=== PATIENT | female | born 1945 | race Caucasian/White ===

== ENCOUNTER 2016-06-24 15:36 | Inpatient (IN) | payer MEDICARE, OTHER ==
[~2016-06-24] VITALS: Ht 152.4 cm; Wt 85.2 kg
[~2016-06-24 15:36] MED LIST: ASPEC81 PO; ATEN-173 PO; BUPR-266 PO; CETI10TA10 PO; GLUC1500 PO; HYDR-5688 PO; LEVO125T72 PO; MELA1CAP9 PO; METR1GEL3 TOP; MULT-839 PO; MULT1CAP6 PO; NIZA300C PO; OXYC-292 PO; [UNRECOGNIZED DRUG - REMARK] PO
[2016-06-24] MEDS ORDERED: SODIUM CHLORIDE 0.9% 1000ML 500 ML IV ONE (16:00)
[2016-06-24] MEDS ORDERED: ACETAMINOPHEN 325 MG TAB PO ONE (16:00)
[2016-06-24] MEDS ORDERED: CEFTRIAXONE SOD INJ 2,000 MG in DEXTROSE 5% 50ML 50 ML IV STA (16:00)
--- NOTE | 2016-06-24 16:39 | EMERGENCY ROOM VISIT NOTE ---
History Report prepared by Jesus: Disha Mccauley Under the Supervision of: Dr. Arie Hernandez M.D. First contact with patient: 15:52 Chief Complaint: WOUND INFECTION Stated Complaint: ABCESS ON RT FLANK History of Present Illness The patient is a 71 year old female who presents to the Emergency Room with complaints of worsening right flank pain that began 3 days ago. The patient had a CT scan that day because her PCP was suspicious of a kidney stone, as she has had kidney stones in the past. A CT scan revealed an abdominal abscess with a possible fistulous tract form a local bowel loop (see diagnostic interpretation for more details). Recently, the patient has been feeling more short of breath with a decreased appetite. She also complains of chills today. She has not noticed any bowel issues. Denies fever, vomiting, diarrhea, urinary symptoms, or other complaints. Past surgical history includes gastric bypass about 10 years ago and bowel perforation repair performed by Dr. Terrazas 2 years ago. Source of History: patient Onset: 3 days ago Position: other (right flank) Timing: worsening Associated Symptoms: + SOB, + chills, No diarrhea, No fevers, No urinary symptoms, No vomiting Note: Other symptoms: decreased appetite Review of Systems See HPI for pertinent positives & negatives. A total of 10 systems reviewed and were otherwise negative. Past Medical & Surgical Medical Problems: (1) Anemia (2) Depression (3) GERD (gastroesophageal reflux disease) (4) HTN (hypertension) (5) Irregular heart beat (6) Obesity (7) Osteoarthritis (8) Rosacea (9) Spinal stenosis Surgical Problems: (1) H/O gastric bypass (2) H/O lithotripsy (3) H/O total knee replacement (4) H/O: (5) Hx of cholecystectomy (6) Post-operative state Family History No pertinent family history stated. Social History Smoking Status: Former Smoker Marital Status: Housing Status: lives with family Occupation Status: retired Current/Historical Medications Scheduled Atenolol (Tenormin), 25 MG PO BID Bupropion (Wellbutrin Sr), 1 TAB PO BID Cetirizine Hcl (Zyrtec), 10 MG PO QAM Ckdinsvsagz-Rybbiuuehbz-Uaz C- (Glucosamine Chondroitin 1), 1 CAP PO QAM Levothyroxine Sodium (Synthroid), 125 MCG PO QAM Multiple Vitamins W/ Minerals (Multi For Her), 1 CAP PO QAM Multiple Vitamins W/ Minerals (Vision Formula/Lutein), 1 TAB PO QAM Nizatidine (Nizatidine), 1 CAP PO BID Tamsulosin HCl (Tamsulosin HCl), 1 CAP PO DAILY Scheduled PRN Hydrocodone/Acetaminophen 5MG/325MG ([place] 5MG/325MG), 1-2 TAB PO Q4H PRN for Pain Melatonin (Melatonin), 10 MG PO HS PRN for Sleep Allergies Coded Allergies: Dust (Verified Allergy, Unknown, HAY FEVER, 06/24/16) Latex1 -Allergic Contact Dermititis (Verified Allergy, Unknown, contact dermatitis, 06/24/16) POLLEN (Verified Allergy, Unknown, HAY FEVER, 06/24/16) Penicillins (Verified Allergy, Unknown, RASH, 06/24/16) Shellfish (Verified Allergy, Unknown, 'tested positive during allergy testing', 06/24/16) Tomato (Verified Allergy, Unknown, tested positive, no rxn, 06/24/16) Eggs or Egg-derived Products (Verified Adverse Reaction, Unknown, 'tested positive during allergy testing', 06/24/16) Sulfa Antibiotics (Verified Adverse Reaction, Unknown, flu symptoms, ) Uncoded Allergies: SEAFOOD (Allergy, Unknown, TESTED POSTIVE during allergy testing, 01/03/15) SMOKE (Allergy, Unknown, CONGESTION, 01/03/15) Physical Exam Vital Signs Date Time Temp Pulse Resp B/P Pulse Ox O2 Delivery O2 Flow Rate FiO2 06/24/16 17:04 96 19 96 06/24/16 17:01 96 Room Air 06/24/16 15:44 37.7 86 18 134/84 96 Room Air Physical Exam GENERAL: Patient is in no acute distress. HEENT: No acute trauma, normocephalic atraumatic, mucous membranes moist, no nasal congestion, no scleral icterus. NECK: No stridor, no adenopathy, no meningismus, trachea is midline. LUNGS: Clear to auscultation bilaterally, no wheeze, no rhonchi, breath sounds equal. HEART: Without murmurs gallops or rubs, regular rate and rhythm. ABDOMEN: There is a firm tender 10-12 cm lesion along the right lateral abdominal wall consistent with a possible abscess. There is no drainage. There is surrounding warmth and erythema. There are multiple old healed surgical abdominal scars. EXTREMITIES: No cyanosis or edema, full range of motion of all the joints without pain or difficulty, no signs for acute trauma. NEUROLOGIC: Oriented x 3, no acute motor or sensory deficits, no focal weakness. SKIN: No rash, no jaundice, no diaphoresis. Medical Decision & Procedures ER Provider Diagnostic Interpretation: CT Abdomen & Pelvis w/o contrast from [place] - 06/21/2016 Indication: Abdominal pain, renal calculi. Impression: Indolent abscess measuring approximately 9x4x5 cm along the right lateral abdominal wall involving the internal oblique, external oblique, and the transverse abdominis with local but walled off extension through the parietal peritoneum at the level of the anterior ninth and 10th rib. There is an adherent loop of bowel adjacent to the collection. This bowel loop may contain a fistulous tract to this collection. The anatomy is distorted by prior gastric bypass procedure. CHEST ONE VIEW PORTABLE CLINICAL HISTORY: Sepsis dyspnea COMPARISON STUDY: 11/30/2013 FINDINGS: The bones soft tissues and hemidiaphragms are normal. The cardiomediastinal silhouette is normal. The lungs are clear. The pulmonary vasculature is normal. IMPRESSION: Negative chest. Electronically signed by: Ar Last M.D. 06/24/2016 4:34 PM Dictated Date/Time: 06/24/2016 4:34 PM Laboratory Results 06/24/16 17:16 Red Blood Count 3.65, Mean Corpuscular Volume 82.5, Mean Corpuscular Hemoglobin 25.5, Mean Corpuscular Hemoglobin Concent 30.9, Mean Platelet Volume 9.5, Neutrophils (%) (Auto) 82.4, Lymphocytes (%) (Auto) 5.2, Monocytes (%) (Auto) 11.9, Eosinophils (%) (Auto) 0.1, Basophils (%) (Auto) 0.1, Neutrophils # (Auto ) 14.86, Lymphocytes # (Auto) 0.94, Monocytes # (Auto) 2.14, Eosinophils # (Auto ) 0.02, Basophils # (Auto) 0.02 06/24/16 17:16 Test 06/24/16 17:16 06/24/16 17:27 White Blood Count 18.03 K/uL (4.8-10.8) Red Blood Count 3.65 M/uL (4.2-5.4) Hemoglobin 9.3 g/dL (12.0-16.0) Hematocrit 30.1 % (37-47) Mean Corpuscular Volume 82.5 fL (80-100) Mean Corpuscular Hemoglobin 25.5 pg (25-34) Mean Corpuscular Hemoglobin Concent 30.9 g/dl (32-36) Platelet Count 467 K/uL (130-400) Mean Platelet Volume 9.5 fL (7.4-10.4) Neutrophils (%) (Auto) 82.4 % Lymphocytes (%) (Auto) 5.2 % Monocytes (%) (Auto) 11.9 % Eosinophils (%) (Auto) 0.1 % Basophils (%) (Auto) 0.1 % Neutrophils # (Auto) 14.86 K/uL (1.4-6.5) Lymphocytes # (Auto) 0.94 K/uL (1.2-3.4) Monocytes # (Auto) 2.14 K/uL (0.11-0.59) Eosinophils # (Auto) 0.02 K/uL (0-0.5) Basophils # (Auto) 0.02 K/uL (0-0.2) RDW Standard Deviation 51.2 fL (36.4-46.3) RDW Coefficient of Variation 16.8 % (11.5-14.5) Immature Granulocyte % (Auto) 0.3 % Immature Granulocyte # (Auto) 0.05 K/uL (0.00-0.02) Prothrombin Time 12.0 SECONDS (9.0-12.0) Prothromb Time International Ratio 1.1 (0.9-1.1) Activated Partial Thromboplast Time 32.3 SECONDS (21.0-31.0) Partial Thromboplastin Ratio 1.2 Anion Gap 9.0 mmol/L (3-11) Est Creatinine Clear Calc Drug Dose 69.9 ml/min Estimated GFR () 98.3 Estimated GFR (Non- 84.9 BUN/Creatinine Ratio 13.1 (10-20) Calcium Level 9.7 mg/dl (8.5-10.1) Total Bilirubin 0.4 mg/dl (0.2-1) Aspartate Amino Transf (AST/SGOT) 19 U/L (15-37) Alanine Aminotransferase (ALT/SGPT) 19 U/L (12-78) Alkaline Phosphatase 145 U/L (45-117) Total Protein 7.5 gm/dl (6.4-8.2) Albumin 2.5 gm/dl (3.4-5.0) Globulin 5.0 gm/dl (2.5-4.0) Albumin/Globulin Ratio 0.5 (0.9-2) Bedside Lactic Acid Venous 1.10 mmol/L (0.90-1.70) Laboratory results reviewed by me. ECG Indication: other (pre-op) Rate (beats per minute): 92 Rhythm: normal sinus Findings: no acute ischemic change, no ectopy ED Course 1552: The patient was evaluated in room A3. A complete history and physical exam was performed. 1600: Ordered Ceftriaxone Sodium 2000 mg/Dextrose 70 ml @ 100 mls/hr IV, Tylenol Tab 650 mg PO, NSS 500 ml @ 999 mls/hr IV. 1605: I discussed the case with the surgical PA. The surgical team will evaluate the patient. 1705: I spoke with Dr. Fragoso - General Surgery. The patient will be going to the OR. 1706: Ordered Flagyl/Nss 500 mg IV, CIpro/D5w 400 mg IV. Medical Decision Differential includes but is not limited to fistula, bowel perforation, abscess , sepsis, bacteremia, dehydration, electrolyte imbalance. There is a significant leukocytosis at 18,000, this is consistent with infection. The patient is anemic but she runs a low hemoglobin. No significant electrolyte abnormality, kidney failure or hepatitis. There was no coagulopathy. Chest film showed no pneumonia or CHF. EKG showed a sinus rhythm , no acute ischemia. I was able to review the CT report from the outside hospital. The patient has an extensive abscess to the right abdominal wall with concerns for possible fistula. The patient was given IV ceftriaxone, IV Cipro and IV Flagyl. She received IV saline and oral Tylenol. I talked to the patient and case management. I discussed the case with the on- call surgeon. The surgeon did see the patient here in the emergency room and the patient is being taken to the operating room for surgical intervention. Consults Time Called: 1602 Consulting Physician: General Surgery PA Returned Call: 1605 I discussed the case with the surgical PA. The surgical team will evaluate the patient. Additional Consults: Time Called: -- Consulted Physician: Dr. Fragoso - General Surgery Returned Call: 1700 Additional Comments: I spoke with him. The patient will be going to the OR. Impression Primary Impression: Abdominal wall abscess Additional Impression: Fever Scribe Attestation The scribe's documentation has been prepared under my direction and personally reviewed by me in its entirety. I confirm that the note above accurately reflects all work, treatment, procedures, and medical decision making performed by me. Departure Information Dispostion Being Evaluated By Surgeon Referrals Danyell Austin M.D. (PCP) Patient Instructions My [facility] Problem Qualifiers
[2016-06-24] MEDS ORDERED: CIPROFLOXACIN 400MG / 200ML D5W IV STA ×2 (16:56→17:06)
[2016-06-24] MEDS ORDERED: METRONIDAZOLE 500MG / 100ML NSS IV STA ×2 (16:56→17:06)
[2016-06-24] MEDS ORDERED: FLM4 PO (17:00)
[2016-06-24] MEDS ORDERED: BUPR100T8 PO (17:00)
[2016-06-24] MEDS ORDERED: NIZA300C3 PO (17:00)
[2016-06-24] MEDS ORDERED: FENTANYL CITRATE INJ 50 MCG/1 ML 2 ML VIAL ONE (17:02)
[2016-06-24] MEDS ORDERED: MIDAZOLAM HCL 1 MG/ML 2ML VIAL ONE (17:02)
[2016-06-24] MEDS ORDERED: MULT-839 PO (17:05)
--- NOTE | 2016-06-24 17:05 | History and Physical: Surg Cnt ---
History & Physical Date Jun 24, 2016. (Iris Turk ., GRAYC) Chief Complaint Right flank pain, abdominal abscess (Iris Turk PA-C) History of Present Illness The patient is a 71 year old female who presented to emergency department today with complaint of right abdominal flank pain that began Friday. States she though it was a kidney stone and she had a CT scan ordered at [facility] while she was having a mammogram which showed abdominal abscess with possible fistula formation with a loop of small bowel. states she started having increasing pain on the right side and some chills on Friday with associated low appetite. Denies of any fever, nausea, vomiting, changes in bowel habits, diarrhea, constipation, or blood in stools. She does not take any blood thinning agents. She does have significant history of abdominal surgeries including gastric bypass in 2007, duodenal/gastric ulcer perforation with repair and need for wound vac in 2013, and history of open cholecystectomy many years ago. (Iris Turk, GRAYC) Past Medical/Surgical History Medical Problems: (1) Anemia (2) Depression (3) GERD (gastroesophageal reflux disease) (4) HTN (hypertension) (5) Irregular heart beat (6) Obesity (7) Osteoarthritis (8) Rosacea (9) Spinal stenosis Surgical Problems: (1) H/O gastric bypass (2) H/O lithotripsy (3) H/O total knee replacement (4) H/O: (5) Hx of cholecystectomy (6) Post-operative state (Iris Turk PA-C) Allergies Coded Allergies: Dust (Verified Allergy, Unknown, HAY FEVER, 06/24/16) Latex1 -Allergic Contact Dermititis (Verified Allergy, Unknown, contact dermatitis, 06/24/16) POLLEN (Verified Allergy, Unknown, HAY FEVER, 06/24/16) Penicillins (Verified Allergy, Unknown, RASH, 06/24/16) Shellfish (Verified Allergy, Unknown, 'tested positive during allergy testing', 06/24/16) Tomato (Verified Allergy, Unknown, tested positive, no rxn, 06/24/16) Eggs or Egg-derived Products (Verified Adverse Reaction, Unknown, 'tested positive during allergy testing', 06/24/16) Sulfa Antibiotics (Verified Adverse Reaction, Unknown, flu symptoms, ) Uncoded Allergies: SEAFOOD (Allergy, Unknown, TESTED POSTIVE during allergy testing, 01/03/15) SMOKE (Allergy, Unknown, CONGESTION, 01/03/15) Home Medications Scheduled Atenolol (Tenormin), 25 MG PO BID Bupropion (Wellbutrin Sr), 1 TAB PO BID Cetirizine Hcl (Zyrtec), 10 MG PO QAM Cqeuspniijx-Otvaoiitghd-Psn C- (Glucosamine Chondroitin 1), 1 CAP PO QAM Levothyroxine Sodium (Synthroid), 125 MCG PO QAM Multiple Vitamins W/ Minerals (Multi For Her), 1 CAP PO QAM Multiple Vitamins W/ Minerals (Vision Formula/Lutein), 1 TAB PO QAM Nizatidine (Nizatidine), 1 CAP PO BID Tamsulosin HCl (Tamsulosin HCl), 1 CAP PO DAILY Scheduled PRN Hydrocodone/Acetaminophen 5MG/325MG ([place] 5MG/325MG), 1-2 TAB PO Q4H PRN for Pain Melatonin (Melatonin), 10 MG PO HS PRN for Sleep Physical Examination Skin: warm/dry, + pertinent finding (there is some erythema of the right flank region with associated induration and palpable lump, tender to palpation) Eyes: normal inspection Head: normocephalic, atraumatic Neck: trachea midline Respiratory/Chest: lungs clear, normal breath sounds, no respiratory distress Cardiovascular: regular rate, rhythm Abdomen / GI: normal bowel sounds, + pertinent finding (Tenderness of the right flank with associated erythema and slight induration, warm to touch) Extremities: normal inspection Neurologic/Psych: alert, oriented x 3 (Iris Turk ., PA-C) Diagnosis Diagnostic Interpretation: CT Abdomen & Pelvis w/o contrast from [place] - 06/21/2016 Indication: Abdominal pain, renal calculi. Impression: Indolent abscess measuring approximately 9x4x5 cm along the right lateral abdominal wall involving the internal oblique, external oblique, and the transverse abdominis with local but walled off extension through the parietal peritoneum at the level of the anterior ninth and 10th rib. There is an adherent loop of bowel adjacent to the collection. This bowel loop may contain a fistulous tract to this collection. The anatomy is distorted by prior gastric bypass procedure. Assessment: Abdominal wall abscess with possible fistula to adjacent loop of bowel. Cellulitis (Iris Turk ., PA-C) ASA Classification: ASA Class III (Cecy Fragoso MD) Plan of Treatment Plan: Plan for incision and drainage of right abdominal wall abscess, possible exploratory laparotomy, possible bowel resection Will start IV cipro/flagyl IV fluids Awaiting labs for cbc, Cmp, pt/inr EKG pre-op CXR pre-op Dr. Fragoso has seen and examined patient, developed assessment and plan. (Iris Turk ., PA-C) D/W benefits, risks and alternatives of the procedure( I/D right abdominal wall abscess possible exploratory laparotomy, bowel resection), the risks- infection, bleeding, sepsis, injury bowel, DVT, TN, stroke, , pt and her understood, they agree with the plan, I answered all questions, I reviewed CT scan, IV fluid, antibiotic, labs, EKG, D/W ER attending, (Cecy Fragoso MD)
[2016-06-24] MEDS ORDERED: LIDOCAINE HCL 1% 20 ML VIAL ONE (17:37)
[2016-06-24] MEDS ORDERED: BUPIVACAINE 0.5 % 5 MG/1 ML MPF 30ML VIAL ONE (17:38)
[2016-06-24] MEDS ORDERED: BACITRACIN OINT 15 GM TUBE ONE (17:38)
[2016-06-24 17:42] LABS: BASO % 0.1 %; BASO ABS # 0.02 K/uL (0-0.2); COMPLETE YES; EOS % 0.1 %; HEMATOCRIT 30.1 % (37-47); IG% 0.3 %; LYMPH % 5.2 %; LYMPH ABS # 0.94 K/uL (1.2-3.4); MEAN CELL VOLUME 82.5 fL (80-100); MEAN CORPUSCULAR HEMOGLOBIN 25.5 pg (25-34); MEAN CORPUSCULAR HGB CONC 30.9 g/dl (32-36); MEAN PLATELET VOLUME 9.5 fL (7.4-10.4); MONO % 11.9 %; NEUT % 82.4 %; PLATELET COUNT 467 K/uL (130-400); RED BLOOD COUNT 3.65 M/uL (4.2-5.4); WHITE BLOOD COUNT 18.03 K/uL (4.8-10.8)
[2016-06-24 17:51] LABS: INR 1.1 (0.9-1.1); PARTIAL THROMBOPLASTIN RATIO 1.2
[2016-06-24] MEDS ORDERED: ONDANSETRON INJ 2 MG/ML 2 ML VIAL IV PRN (18:00)
[2016-06-24] MEDS ORDERED: ATROPINE SULFATE 0.1 MG/ML 5ML SYR IV PRN (18:00)
[2016-06-24] MEDS ORDERED: LABETALOL HCL IV 5 MG/ML 20ML IV PRN (18:00)
[2016-06-24] MEDS ORDERED: HYDROmorphone INJ 1 MG/ML SYR IV PRN ×2 (18:00→19:00)
[2016-06-24] MEDS ORDERED: EpHEDrine SULFATE INJ 50 MG/ML AMP IV PRN (18:00)
[2016-06-24] MEDS ORDERED: FENTANYL CITRATE INJ 50 MCG/1 ML 2 ML VIAL IV PRN (18:00)
[2016-06-24] MEDS ORDERED: MEPERIDINE HCL 25 MG/ML CARP IV PRN (18:00)
[2016-06-24 18:01] LABS: BUN/CREATININE RATIO 13.1 (10-20); CALCIUM 9.7 mg/dl (8.5-10.1); CREATININE 0.72 mg/dl (0.60-1.20); POTASSIUM 3.8 mmol/L (3.5-5.1)
[2016-06-24 18:04] LABS: ALB/GLOB RATIO 0.5 (0.9-2)
[2016-06-24] MEDS ORDERED: VANCOMYCIN HCL 1000MG/20ML VIAL ONE (18:50)
--- NOTE | 2016-06-24 18:55 | [facility] Post Operative Brief Note ---
Immediate Operative Summary Operative Date Jun 24, 2016. Pre-Operative Diagnosis Abdominal wall abscess with possible fistula to adjacent loop of bowel Post-Operative Diagnosis Abdominal wall abscess with possible fistula to adjacent loop of bowel Procedure(s) Performed Incision and Drainage Abdominal Wall Abscess Surgeon Dr. Fragoso Bricklayer Supervisor Surgeon(s) Iris Turk PA-C Estimated Blood Loss 20ml Findings abdominal wall abscess,wound culture sent Fluids (cc crystalloids) 800ml Specimens For Culture: 1. Abdominal Wall Abscesss - C+S, Aerobic/Anaerobic, Gram Stain - Routine Drains none, packing only Anesthesia general Complication(s) None Disposition Recovery Room / PACU
[2016-06-24] MEDS ORDERED: LIDOCAINE HCL 2% 2 ML VIAL (20MG/ML) ONE (19:13)
[2016-06-24] MEDS ORDERED: SUCCINYLCHOLINE 100MG/5ML SYR IV ONE (19:13)
[2016-06-24] MEDS ORDERED: ROCURONIUM BROMID 50MG/5ML SYR ONE (19:13)
[2016-06-24] MEDS ORDERED: ONDANSETRON INJ 2 MG/ML 2 ML VIAL ONE (19:13)
[2016-06-24] MEDS ORDERED: DEXAMETHASONE SOD INJ 4 MG/ML VIAL ONE (19:13)
[2016-06-24] MEDS ORDERED: PROPOFOL IV EMULSION 10 MG/ML 20 ML VIAL IV ONE (19:14)
[2016-06-24] MEDS ORDERED: GLYCOPYRROLATE INJ 0.2 MG/ML VIAL ONE (19:14)
[2016-06-24] MEDS ORDERED: NEOSTIGMINE METHYLSULFATE 5 MG/5 ML SYR ONE (19:14)
[2016-06-24 20:00] VITALS: BP 115/70; PULSE 92; TEMP 37.1; O2SAT 100; Ht 152.4 cm; Wt 85.2 kg
[2016-06-24 20:30] VITALS: BP 122/73; PULSE 85; TEMP 37.2; O2SAT 99
--- NOTE | 2016-06-24 20:36 | Anesthesiology Progress Note ---
Anesthesia Post Op Note Date & Time Jun 24, 2016 at 20:36 Vital Signs Pain Intensity: 1 Vital Signs Past 12 Hours Date Time Temp Pulse Resp B/P Pulse Ox O2 Delivery O2 Flow Rate FiO2 06/24/16 19:57 92 06/24/16 19:57 92 100 06/24/16 19:55 114/68 06/24/16 19:52 90 18 100 06/24/16 19:52 90 18 06/24/16 19:50 110/68 06/24/16 19:47 90 17 100 06/24/16 19:47 91 17 06/24/16 19:45 115/52 06/24/16 19:42 92 15 06/24/16 19:42 91 15 100 06/24/16 19:40 105/67 06/24/16 19:37 92 16 06/24/16 19:37 90 16 100 06/24/16 19:36 111/51 06/24/16 19:32 93 12 06/24/16 19:32 91 12 99 06/24/16 19:32 37.2 92 22 111/51 100 Nasal Cannula 2 06/24/16 19:30 111/92 06/24/16 19:27 91 19 06/24/16 19:27 90 19 100 06/24/16 19:26 120/57 06/24/16 19:22 89 18 100 06/24/16 19:22 88 18 06/24/16 19:21 90 14 06/24/16 19:21 88 14 100 06/24/16 19:20 118/55 06/24/16 19:16 88 20 115/63 100 06/24/16 19:16 89 20 06/24/16 19:11 90 17 06/24/16 19:11 88 17 100 06/24/16 19:10 145/68 06/24/16 19:06 94 9 06/24/16 19:06 94 9 136/65 100 06/24/16 19:06 37.5 93 16 136/65 98 Mask 10 06/24/16 17:04 96 19 96 06/24/16 17:01 96 Room Air 06/24/16 15:44 37.7 86 18 134/84 96 Room Air Notes Mental Status: alert / awake / arousable, participated in evaluation Pt Amnestic to Procedure: Yes Nausea / Vomiting: adequately controlled Pain: adequately controlled Airway Patency, RR, SpO2: stable & adequate BP & HR: stable & adequate Hydration State: stable & adequate Anesthetic Complications: no major complications apparent
[2016-06-24] MEDS: D5W AND 1/2NSS + 20MEQ KCL 1,000 ML IV SCH (20:54)
[2016-06-24 21:00] VITALS: BP 125/79; PULSE 84; TEMP 37.2; O2SAT 98
[2016-06-24] MEDS ORDERED: LACTOBACILLUS ACIDOPHILUS (FLORANEX) TAB PO ONE (22:24)
[2016-06-24 23:00] VITALS: BP 111/68; PULSE 82; TEMP 36.8; O2SAT 96
[2016-06-25] MEDS ORDERED: METRONIDAZOLE / NSS 500 MG in PREMIXED NSS 100 ML IV SCH (02:00)
[2016-06-25 03:24] VITALS: BP 106/67; PULSE 62; TEMP 36.4; O2SAT 99
[2016-06-25] MEDS: D5W AND 1/2NSS + 20MEQ KCL 1,000 ML IV SCH ×3 (04:49→22:34)
[2016-06-25] MEDS ORDERED: PIPERACILL/TAZOBAC IV 4.5 GM in DEXTROSE 5% 100ML 100 ML IV SCH (06:15)
--- NOTE | 2016-06-25 06:24 | Medical Consult ---
Consultation Date of Consultation: Jun 25, 2016. Attending Physician: Cecy Fragoso MD Reason for Consultation: Abdominal wall abscess History of Present Illness 71-year-old female with past medical history of gastric bypass, osteoarthritis, irregular heart rhythm, kidney stones, duodenal/gastric ulcer perforation with repair, need for wound VAC in 2013, cholecystectomy presented to the ER with worsening right flank pain which started 3 days prior to arrival . CT scan ordered by PCP had revealed a possible fistulous tract from a local bowel loop. She also complained about chills but denied any nausea, vomiting, fever, diarrhea, dysuria. She had undergone an incision and drainage of abdominal wall abscess and medicine has been consulted. She had tolerated the procedure well and and states that her pain is well-controlled. Past Medical/Surgical History Medical Problems: (1) Abdominal wall abscess Status: Acute (2) Depression Status: Chronic (3) Fever Status: Acute (4) GERD (gastroesophageal reflux disease) Status: Chronic (5) HTN (hypertension) Status: Chronic (6) Irregular heart beat Status: Chronic (7) Lumbar degenerative disc disease Status: Acute (8) Obesity Status: Chronic (9) Osteoarthritis Status: Chronic (10) Rosacea Status: Chronic (11) Spinal stenosis Status: Chronic Surgical Problems: (1) H/O gastric bypass Status: Chronic Social History Smoking Status: Former Smoker Marital Status: Housing Status: lives with family Occupation Status: retired Allergies Coded Allergies: Dust (Verified Allergy, Unknown, HAY FEVER, 06/24/16) Latex1 -Allergic Contact Dermititis (Verified Allergy, Unknown, contact dermatitis, 06/24/16) POLLEN (Verified Allergy, Unknown, HAY FEVER, 06/24/16) Penicillins (Verified Allergy, Unknown, RASH, 06/24/16) Shellfish (Verified Allergy, Unknown, 'tested positive during allergy testing', 06/24/16) Tomato (Verified Allergy, Unknown, tested positive, no rxn, 06/24/16) Eggs or Egg-derived Products (Verified Adverse Reaction, Unknown, 'tested positive during allergy testing', 06/24/16) Sulfa Antibiotics (Verified Adverse Reaction, Unknown, flu symptoms, ) Uncoded Allergies: SEAFOOD (Allergy, Unknown, TESTED POSTIVE during allergy testing, 01/03/15) SMOKE (Allergy, Unknown, CONGESTION, 10/20/15) Current Inpatient Medications Current Inpatient Medications Medications (Trade) Dose Ordered Sig/Devang Route Start Time Stop Time Status Last Admin Dose Admin Potassium Chloride/Dextrose/ Sod Cl 1,000 ml @ 125 mls/hr Q8H IV 06/24/16 20:30 07/24/16 20:29 06/25/16 04:49 125 MLS/HR Metronidazole/Prmx (Flagyl / Nss/ Premixed Nss) 100 ml @ 100 mls/hr Q8H IV 06/25/16 02:00 07/05/16 01:59 06/25/16 01:34 100 MLS/HR Ondansetron HCl (Zofran Inj) 4 mg Q4H PRN IV 06/24/16 19:00 07/24/16 18:59 Hydromorphone HCl (Dilaudid Inj) 0.6 mg Q3H PRN IV 06/24/16 19:00 07/08/16 18:59 Hydromorphone HCl (Dilaudid Inj) 1 mg Q3H PRN IV 06/24/16 19:00 07/08/16 18:59 Lactobacillus Acidophilus (Floranex Tab) 4 tab TIDM PO 06/25/16 08:30 07/25/16 08:29 Review of Systems Constitutional: No chills, No fever Eyes: No worsening of vision ENT: No hearing loss Respiratory: No cough Cardiovascular: No chest pain Abdomen: No nausea, No pain, No vomiting Musculoskeletal: No joint pain Neurologic: No memory loss Endocrine: No fatigue Physical Exam Date Time Temp Pulse Resp B/P Pulse Ox O2 Delivery O2 Flow Rate FiO2 06/25/16 03:24 36.4 62 17 106/67 99 Nasal Cannula 2.0 06/24/16 23:52 Nasal Cannula 2.0 06/24/16 23:00 36.8 82 16 111/68 96 Nasal Cannula 2.0 06/24/16 21:00 37.2 84 16 125/79 98 Nasal Cannula 2.0 06/24/16 20:30 37.2 85 16 122/73 99 Nasal Cannula 2.0 06/24/16 20:00 37.1 92 16 115/70 100 Nasal Cannula 2.0 06/24/16 20:00 100 Nasal Cannula 2.0 06/24/16 19:57 92 06/24/16 19:57 92 100 06/24/16 19:55 114/68 06/24/16 19:52 90 18 100 06/24/16 19:52 90 18 06/24/16 19:50 110/68 06/24/16 19:47 90 17 100 06/24/16 19:47 91 17 06/24/16 19:45 115/52 06/24/16 19:42 92 15 06/24/16 19:42 91 15 100 06/24/16 19:40 105/67 06/24/16 19:37 92 16 06/24/16 19:37 90 16 100 06/24/16 19:36 111/51 06/24/16 19:32 93 12 06/24/16 19:32 91 12 99 06/24/16 19:32 37.2 92 22 111/51 100 Nasal Cannula 2 06/24/16 19:30 111/92 06/24/16 19:27 91 19 06/24/16 19:27 90 19 100 06/24/16 19:26 120/57 06/24/16 19:22 89 18 100 06/24/16 19:22 88 18 06/24/16 19:21 90 14 06/24/16 19:21 88 14 100 06/24/16 19:20 118/55 06/24/16 19:16 88 20 115/63 100 06/24/16 19:16 89 20 06/24/16 19:11 90 17 06/24/16 19:11 88 17 100 06/24/16 19:10 145/68 06/24/16 19:06 94 9 06/24/16 19:06 94 9 136/65 100 06/24/16 19:06 37.5 93 16 136/65 98 Mask 10 06/24/16 17:04 96 19 96 06/24/16 17:01 96 Room Air 06/24/16 15:44 37.7 86 18 134/84 96 Room Air General Appearance: WD/WN, no apparent distress Head: normocephalic, + pertinent finding (NG tube) Eyes: normal inspection ENT: normal ENT inspection, hearing grossly normal Respiratory/Chest: chest non-tender, lungs clear, normal breath sounds, no respiratory distress, no accessory muscle use Cardiovascular: regular rate, rhythm Abdomen/GI: normal bowel sounds, non tender, soft Neurologic/Psych: alert, normal mood/affect, oriented x 3 Laboratory Results Last 24 Hours Test 06/24/16 17:16 06/24/16 17:27 06/25/16 04:44 White Blood Count 18.03 K/uL Red Blood Count 3.65 M/uL Hemoglobin 9.3 g/dL Hematocrit 30.1 % Mean Corpuscular Volume 82.5 fL Mean Corpuscular Hemoglobin 25.5 pg Mean Corpuscular Hemoglobin Concent 30.9 g/dl Platelet Count 467 K/uL Mean Platelet Volume 9.5 fL Neutrophils (%) (Auto) 82.4 % Lymphocytes (%) (Auto) 5.2 % Monocytes (%) (Auto) 11.9 % Eosinophils (%) (Auto) 0.1 % Basophils (%) (Auto) 0.1 % Neutrophils # (Auto) 14.86 K/uL Lymphocytes # (Auto) 0.94 K/uL Monocytes # (Auto) 2.14 K/uL Eosinophils # (Auto) 0.02 K/uL Basophils # (Auto) 0.02 K/uL RDW Standard Deviation 51.2 fL RDW Coefficient of Variation 16.8 % Immature Granulocyte % (Auto) 0.3 % Immature Granulocyte # (Auto) 0.05 K/uL Prothrombin Time 12.0 SECONDS Prothromb Time International Ratio 1.1 Activated Partial Thromboplast Time 32.3 SECONDS Partial Thromboplastin Ratio 1.2 Sodium Level 136 mmol/L Potassium Level 3.8 mmol/L Chloride Level 101 mmol/L Carbon Dioxide Level 26 mmol/L Anion Gap 9.0 mmol/L Blood Urea Nitrogen 9 mg/dl Creatinine 0.72 mg/dl Est Creatinine Clear Calc Drug Dose 69.9 ml/min Estimated GFR () 98.3 Estimated GFR (Non- 84.9 BUN/Creatinine Ratio 13.1 Random Glucose 103 mg/dl Calcium Level 9.7 mg/dl Total Bilirubin 0.4 mg/dl Aspartate Amino Transf (AST/SGOT) 19 U/L Alanine Aminotransferase (ALT/SGPT) 19 U/L Alkaline Phosphatase 145 U/L Total Protein 7.5 gm/dl Albumin 2.5 gm/dl Globulin 5.0 gm/dl Albumin/Globulin Ratio 0.5 Bedside Lactic Acid Venous 1.10 mmol/L Assessment & Plan 71-year-old female with past medical history of gastric bypass, osteoarthritis, irregular heart rhythm, kidney stones, duodenal/gastric ulcer perforation with repair, need for wound VAC in 2013, cholecystectomy presented to the ER with worsening right flank pain which started 3 days prior to arrival . CT abdomen had revealed a possible fistulous bowel loop with abdominal wall abscess. Status post I&D. Abdominal wall abscess: Status post I&D - Vancomycin and Zosyn - Pain Control with Dilaudid as needed - Currently nothing by mouth - Continue IV fluids Paroxysmal SVT: - Atenolol (currently on hold as she is NPO) Hypothyroidism: Synthroid DVT prophylaxis: SCDs Full code Disposition: [facility] [place] Resident Tracking Resident Involvement: Resident Care Provided Care Provided: Adult [facility] Medicine Assessment and Plan Attending Addendum: I have physically seen and examined this patient, have directed their medical care, have supervised the medical residents activities, and agree with the H&P as noted above, with the following changes: NONE
[2016-06-25 06:42] LABS: BASO % 0.1 %; BASO ABS # 0.01 K/uL (0-0.2); HEMATOCRIT 28.4 % (37-47); IG% 0.2 %; LYMPH % 4.5 %; LYMPH ABS # 0.59 K/uL (1.2-3.4); MEAN CORPUSCULAR HEMOGLOBIN 25.1 pg (25-34); MEAN CORPUSCULAR HGB CONC 30.3 g/dl (32-36); MONO % 4.6 %; NEUT % 90.6 %; PLATELET COUNT 385 K/uL (130-400); RED BLOOD COUNT 3.42 M/uL (4.2-5.4); WHITE BLOOD COUNT 13.09 K/uL (4.8-10.8)
[2016-06-25] MEDS ORDERED: VANCOMYCIN CONSULT ACTIVE PRN (06:45)
[2016-06-25] MEDS ORDERED: VANCOMYCIN INJ 1,900 MG in SODIUM CHLORIDE 0.9% 500ML 500 ML IV ONE (06:45)
[2016-06-25 07:01] LABS: BUN/CREATININE RATIO 10.6 (10-20); CALCIUM 9.4 mg/dl (8.5-10.1); CREATININE 0.64 mg/dl (0.60-1.20); POTASSIUM 4.1 mmol/L (3.5-5.1)
[2016-06-25 07:04] LABS: ALB/GLOB RATIO 0.4 (0.9-2); COMPLETE YES
--- NOTE | 2016-06-25 07:09 | OPERATIVE REPORT ---
DATE OF OPERATION: 06/24/2016 PREOPERATIVE DIAGNOSIS: Right abdominal wall abscess. POSTOPERATIVE DIAGNOSIS: Same. PROCEDURE: I\T\D right abdominal wall abscess. SURGEON: Cecy Fragoso M.D DIRECTOR RECORDS MANAGEMENT: KYLER Boateng ANESTHESIA: General. ESTIMATED BLOOD LOSS: About 20 mL. FINDINGS: A large abscess of abdominal wall cavity. SPECIMENS: Wound culture sent. COMPLICATIONS: None. IV FLUIDS: 800 mL. Estimated blood loss about 20 mL. URINE OUTPUT: 20 mL. INDICATIONS FOR THE PROCEDURE: This is a 71-year-old female who presented with right abdominal pain. The patient had a CT scan showing right abdominal wall cavity abscess with possible bowel fistula and after I did examine the patient on the ER, we decided to take the patient to the OR and do an I\T\D abscess, possible exploratory laparotomy, possible bowel resection. I did talk to the patient about the benefit, the risks and alternate procedure. I indicated the risks may include but not limited such as bleeding, infection, sepsis, multiple organ failure, injury to bowel, DVT, myocardial infarction, stroke, even . The patient and patient's understands and the patient signed informed consent and I answered all questions. DETAILS OF PROCEDURE: We brought the patient to the OR, put the patient in the supine position. The patient received SCDs on bilateral legs to prevent DVT. Also, the patient received Ronquillo catheter insertion. The patient received Cipro 400 mg IV and 500 mg of Flagyl for prophylactic antibiotic. The patient received general anesthesia without difficulty. The whole abdomen was prepped and draped in routine sterile fashion. After a timeout, the patient had an abscess on the right side upper abdominal wall, so I made about a 10-cm incision, the patient has a larger abscess on the right side abdominal wall deeper to the muscle layer. We cleaned up all the pus came out. We suctioned out and hemostasis obtained. At this moment, a significant inflammation and edema was difficult to tell this was bowel fistula or not. At this moment, we decided to do packing the incision with Kerlex and normal saline. Then, we put the dressing on. The patient tolerated the procedure well and all the instrument, needle and sponge count correct x2 at the end of the case. We sent the wound culture also. The patient back to the recovery room in stable condition. After the procedure, I did talk to the patient's about the OR finding and procedure we did and he understands. I attest to the content of the Intraoperative Record and any orders documented therein. Any exceptions are noted below. SOO
[2016-06-25 07:25] VITALS: BP 112/64; PULSE 63; TEMP 36.4; O2SAT 97
[2016-06-25] MEDS: LACTOBACILLUS ACIDOPHILUS (FLORANEX) TAB PO SCH ×3 (08:35→19:09)
[2016-06-25] MEDS ORDERED: AZTREONAM CONSULT ACTIVE PRN ×2 (09:15)
--- NOTE | 2016-06-25 09:16 | Pharmacy Progress Note ---
Pharmacy Antibiotic Consult Date of Service: Jun 25, 2016. Pharmacy Dosing Scope Pharmacy is consulted to initiate vancomycin IV dosing therapy, order appropriate labs and adjust drug dose/frequency. Subjective The patient is a 71 year old female admitted on Jun 24, 2016 at 19:04. Objective Height (Feet): 4 Height (Inches): 12.00 Weight (Kilograms): 85.200 Lab Results (24hrs): Laboratory Tests Test 06/24/16 17:16 06/25/16 06:28 BUN/Creatinine Ratio 13.1 10.6 Blood Urea Nitrogen 9 mg/dl 7 mg/dl Creatinine 0.72 mg/dl 0.64 mg/dl White Blood Count 18.03 K/uL 13.09 K/uL Red Blood Count 3.65 M/uL 3.42 M/uL Hemoglobin 9.3 g/dL 8.6 g/dL Hematocrit 30.1 % 28.4 % Mean Corpuscular Volume 82.5 fL 83.0 fL Mean Corpuscular Hemoglobin 25.5 pg 25.1 pg Mean Corpuscular Hemoglobin Concent 30.9 g/dl 30.3 g/dl Platelet Count 467 K/uL 385 K/uL Mean Platelet Volume 9.5 fL 9.0 fL Neutrophils (%) (Auto) 82.4 % 90.6 % Lymphocytes (%) (Auto) 5.2 % 4.5 % Monocytes (%) (Auto) 11.9 % 4.6 % Eosinophils (%) (Auto) 0.1 % 0.0 % Basophils (%) (Auto) 0.1 % 0.1 % Neutrophils # (Auto) 14.86 K/uL 11.87 K/uL Lymphocytes # (Auto) 0.94 K/uL 0.59 K/uL Monocytes # (Auto) 2.14 K/uL 0.60 K/uL Eosinophils # (Auto) 0.02 K/uL 0.00 K/uL Basophils # (Auto) 0.02 K/uL 0.01 K/uL Assessment & Plan ASSESSMENT: * Ms Maciel is a 71 year old female with a past medical history of gastric bypass and duodenal ulcer s/o repair who was admitted for flank pain the other day. She had a 3 day history of this pain and a CT scan of the abdomen as an outpatient showed a possible fistula tract in the abdomen. * She underwent an incision and drainage by Dr Fragoso yesterday which showed a large cavity than expected. There was much pus and due to inflammation it was unclear if there was a tract involving the small bowel. Therefore, Gram positive , Gram negative, and anaerobic coverage is utilized. PLAN: Loading dose: vancomycin 1900 mg (22.3 mg/kg) IV X 1 dose then: vancomycin 1100 mg IV every 10 hours (population pharmacokinetics suggest a half-life of 9.9 hr with an elimination constant of 0.07 hr-1. A 13 mg/kg dose was utilized due to the patient's body habitus with a BMI of 36.7 kg/m2). Goal peak level estimate: between 35 - 40 mcg/mL. Goal trough level estimate: between 10 - 15 mcg/mL (indication: currently cellulitis). Trough has been ordered for: prior to 1200 dose. Pharmacy will continue to follow and will adjust dose/frequency as necessary. Thank you
[2016-06-25] MEDS: METRONIDAZOLE 500MG / NSS IV SCH ×2 (10:22→19:11)
--- NOTE | 2016-06-25 10:38 | Surgery Progress Note ---
Surgery Progress Note Date of Service Jun 25, 2016. Subjective Post OP Day: 1 + feeling well S/P I/D right abdominal wall abscess pt is doing better, less pain, no fever, NG 45 ml, Urine out put- 1350ml, I changed the dressing the incision, the wound is dry, less redness, Objective Vital Signs: Date Time Temp Pulse Resp B/P Pulse Ox O2 Delivery O2 Flow Rate FiO2 06/25/16 07:25 36.4 63 16 112/64 97 Room Air 06/25/16 07:10 Room Air 06/25/16 03:24 36.4 62 17 106/67 99 Nasal Cannula 2.0 06/24/16 23:52 Nasal Cannula 2.0 06/24/16 23:00 36.8 82 16 111/68 96 Nasal Cannula 2.0 06/24/16 21:00 37.2 84 16 125/79 98 Nasal Cannula 2.0 06/24/16 20:30 37.2 85 16 122/73 99 Nasal Cannula 2.0 06/24/16 20:00 37.1 92 16 115/70 100 Nasal Cannula 2.0 06/24/16 20:00 100 Nasal Cannula 2.0 06/24/16 19:57 92 06/24/16 19:57 92 100 06/24/16 19:55 114/68 06/24/16 19:52 90 18 100 06/24/16 19:52 90 18 06/24/16 19:50 110/68 06/24/16 19:47 90 17 100 06/24/16 19:47 91 17 06/24/16 19:45 115/52 06/24/16 19:42 92 15 06/24/16 19:42 91 15 100 06/24/16 19:40 105/67 06/24/16 19:37 92 16 06/24/16 19:37 90 16 100 06/24/16 19:36 111/51 06/24/16 19:32 93 12 06/24/16 19:32 91 12 99 06/24/16 19:32 37.2 92 22 111/51 100 Nasal Cannula 2 06/24/16 19:30 111/92 06/24/16 19:27 91 19 06/24/16 19:27 90 19 100 06/24/16 19:26 120/57 06/24/16 19:22 89 18 100 06/24/16 19:22 88 18 06/24/16 19:21 90 14 06/24/16 19:21 88 14 100 06/24/16 19:20 118/55 06/24/16 19:16 88 20 115/63 100 06/24/16 19:16 89 20 06/24/16 19:11 90 17 06/24/16 19:11 88 17 100 06/24/16 19:10 145/68 06/24/16 19:06 94 9 06/24/16 19:06 94 9 136/65 100 06/24/16 19:06 37.5 93 16 136/65 98 Mask 10 06/24/16 17:04 96 19 96 06/24/16 17:01 96 Room Air 06/24/16 15:44 37.7 86 18 134/84 96 Room Air General Appearance: WD/WN Head: normocephalic Neck: supple, no JVD Respiratory/Chest: chest non-tender, lungs clear, normal breath sounds Cardiovascular: regular rate, rhythm, no JVD Abdomen: normal bowel sounds, non tender, non distended, soft, no organomegaly Incision(s): clean, dry, no erythema, no drainage Extremities: normal range of motion, non-tender, normal inspection Laboratory Results: Results Past 24 Hours Test 06/24/16 17:16 06/24/16 17:27 06/25/16 06:28 Range/Units White Blood Count 18.03 13.09 4.8-10.8 K/uL Red Blood Count 3.65 3.42 4.2-5.4 M/uL Hemoglobin 9.3 8.6 12.0-16.0 g/dL Hematocrit 30.1 28.4 37-47 % Mean Corpuscular Volume 82.5 83.0 80-100 fL Mean Corpuscular Hemoglobin 25.5 25.1 25-34 pg Mean Corpuscular Hemoglobin Concent 30.9 30.3 32-36 g/dl Platelet Count 467 385 130-400 K/uL Mean Platelet Volume 9.5 9.0 7.4-10.4 fL Neutrophils (%) (Auto) 82.4 90.6 % Lymphocytes (%) (Auto) 5.2 4.5 % Monocytes (%) (Auto) 11.9 4.6 % Eosinophils (%) (Auto) 0.1 0.0 % Basophils (%) (Auto) 0.1 0.1 % Neutrophils # (Auto) 14.86 11.87 1.4-6.5 K/uL Lymphocytes # (Auto) 0.94 0.59 1.2-3.4 K/uL Monocytes # (Auto) 2.14 0.60 0.11-0.59 K/uL Eosinophils # (Auto) 0.02 0.00 0-0.5 K/uL Basophils # (Auto) 0.02 0.01 0-0.2 K/uL RDW Standard Deviation 51.2 51.7 36.4-46.3 fL RDW Coefficient of Variation 16.8 16.9 11.5-14.5 % Immature Granulocyte % (Auto) 0.3 0.2 % Immature Granulocyte # (Auto) 0.05 0.02 0.00-0.02 K/uL Prothrombin Time 12.0 9.0-12.0 SECONDS Prothromb Time International Ratio 1.1 0.9-1.1 Activated Partial Thromboplast Time 32.3 21.0-31.0 SECONDS Partial Thromboplastin Ratio 1.2 Sodium Level 136 140 136-145 mmol/L Potassium Level 3.8 4.1 3.5-5.1 mmol/L Chloride Level 101 107 98-107 mmol/L Carbon Dioxide Level 26 29 21-32 mmol/L Anion Gap 9.0 4.0 3-11 mmol/L Blood Urea Nitrogen 9 7 7-18 mg/dl Creatinine 0.72 0.64 0.60-1.20 mg/dl Est Creatinine Clear Calc Drug Dose 69.9 79.3 ml/min Estimated GFR () 98.3 104.8 Estimated GFR (Non- 84.9 90.4 BUN/Creatinine Ratio 13.1 10.6 10-20 Random Glucose 103 199 70-99 mg/dl Calcium Level 9.7 9.4 8.5-10.1 mg/dl Total Bilirubin 0.4 0.3 0.2-1 mg/dl Aspartate Amino Transf (AST/SGOT) 19 127 15-37 U/L Alanine Aminotransferase (ALT/SGPT) 19 96 12-78 U/L Alkaline Phosphatase 145 277 45-117 U/L Total Protein 7.5 6.6 6.4-8.2 gm/dl Albumin 2.5 2.0 3.4-5.0 gm/dl Globulin 5.0 4.6 2.5-4.0 gm/dl Albumin/Globulin Ratio 0.5 0.4 0.9-2 Bedside Lactic Acid Venous 1.10 0.90-1.70 mmol/L Red Blood Cell Morphology Unremarkable Hepatitis C Antibody Screen NEG NEG Microbiology Results 06/24/16 Blood Culture, Received Pending 06/24/16 Blood Culture, Received Pending 06/24/16 Gram Stain - Final, Resulted 06/24/16 Bacterial Culture, Resulted Pending Assessment & Plan IMP: S/P I/D abdominal wall abscess pt is doing better, D/C NG tube infection disease Doctor consult co-manage resume home meds wound culture is pending I update information about OR finding and the procedure pt had to pt and her son and daughter, they understood, I answered all questions, will F/U full liquids
--- NOTE | 2016-06-25 10:38 | Anesthesiology Progress Note ---
Anesthesia Post Op Note Date & Time Jun 25, 2016 at 10:37 Vital Signs Pain Intensity: 0.0 Vital Signs Past 12 Hours Date Time Temp Pulse Resp B/P Pulse Ox O2 Delivery O2 Flow Rate FiO2 06/25/16 07:25 36.4 63 16 112/64 97 Room Air 06/25/16 07:10 Room Air 06/25/16 03:24 36.4 62 17 106/67 99 Nasal Cannula 2.0 06/24/16 23:52 Nasal Cannula 2.0 06/24/16 23:00 36.8 82 16 111/68 96 Nasal Cannula 2.0 Notes Mental Status: alert / awake / arousable, participated in evaluation Pt Amnestic to Procedure: Yes Nausea / Vomiting: adequately controlled Pain: adequately controlled Airway Patency, RR, SpO2: stable & adequate BP & HR: stable & adequate Hydration State: stable & adequate Anesthetic Complications: no major complications apparent
[2016-06-25] MEDS: AZTREONAM 2000 MG in DEXTROSE 5% 100 ML IV SCH ×2 (11:39→20:59)
--- NOTE | 2016-06-25 11:43 | Medical Consult ---
Consultation Date of Consultation: Jun 25, 2016. Attending Physician: Cecy Fragoso MD Reason for Consultation: Abdominal wall abscess History of Present Illness Patient is a 71 yo female who presented to the ED with concerns of abdominal wall abscess. She was evaluated by her PCP [facility] for concerns of right renal stone due to multiple days of flank pain. The patient states that she has had abdominal pain on and off for about 3 weeks [facility]. Her PCP ordered a CT scan of the abdomen which showed abdominal abscess with possible fistulous tract from a local bowel loop. The patient has history of multiple bowel related surgeries including gastric bypass approximately 10 years ago and surgery for perforated gastric ulcer about 2 years ago. She ended up with a subsequent abdominal wound infection at that time and required wound vac and antibiotic therapy. Since then , the patient states that she has had no further abdominal problems and has not had open abdominal wounds. She had been moving her bowels well, and denies fever , nausea or vomiting. She has had on and off sweats and chills at home but this is chronic for her and not out of the ordinary. She does also have history of multiple large renal stones. She states that she also was admitted to [facility] about 1 year ago for abdominal pain at which time she was found to have likely passed a gall stone (though she had cholecystectomy many years ago) . She had no further complications from that admission. Since current admission, the patient is s/p I & D of large abdominal abscess. Operative record was reviewed. Blood and surgical cultures are pending. Abdominal abscess gram stain is showing moderate GNB and GPC. She was placed on IV Vancomycin, Aztreonam, and Flagyl. She is PCN allergic. WBC count on admission was 18 and has trended down to 13 today. Creatinine is stable at 0.64. Chest X-Ray showed no acute changes. Past Medical/Surgical History Medical Problems: (1) Abdominal wall abscess Status: Acute (2) Depression Status: Chronic (3) Fever Status: Acute (4) GERD (gastroesophageal reflux disease) Status: Chronic (5) HTN (hypertension) Status: Chronic (6) Irregular heart beat Status: Chronic (7) Lumbar degenerative disc disease Status: Acute (8) Obesity Status: Chronic (9) Osteoarthritis Status: Chronic (10) Rosacea Status: Chronic (11) Spinal stenosis Status: Chronic Surgical Problems: (1) H/O gastric bypass Status: Chronic Medical Problems: (1) Anemia (2) Depression (3) GERD (gastroesophageal reflux disease) (4) HTN (hypertension) (5) Irregular heart beat (6) Obesity (7) Osteoarthritis (8) Rosacea (9) Spinal stenosis Surgical Problems: (1) H/O gastric bypass (2) H/O lithotripsy (3) H/O total knee replacement (4) H/O: (5) Hx of cholecystectomy (6) Post-operative state Family History Noncontributory Social History Smoking Status: Former Smoker Marital Status: Housing Status: lives with family Occupation Status: retired Allergies Coded Allergies: Dust (Verified Allergy, Unknown, HAY FEVER, 06/24/16) Latex1 -Allergic Contact Dermititis (Verified Allergy, Unknown, contact dermatitis, 06/24/16) POLLEN (Verified Allergy, Unknown, HAY FEVER, 06/24/16) Penicillins (Verified Allergy, Unknown, RASH, 06/24/16) Shellfish (Verified Allergy, Unknown, 'tested positive during allergy testing', 06/24/16) Tomato (Verified Allergy, Unknown, tested positive, no rxn, 06/24/16) Eggs or Egg-derived Products (Verified Adverse Reaction, Unknown, 'tested positive during allergy testing', 06/24/16) Sulfa Antibiotics (Verified Adverse Reaction, Unknown, flu symptoms, ) Uncoded Allergies: SEAFOOD (Allergy, Unknown, TESTED POSTIVE during allergy testing, 01/03/15) SMOKE (Allergy, Unknown, CONGESTION, 01/03/15) Home Medications Reported Home Medications Medications Dose Route/Sig Max Daily Dose Days Date Category Dose Instructions Vision Formula/Lutein (Multiple Vitamins W/ Minerals) 1 Tab Tab 1 Tab PO QAM 06/24/16 Reported Wellbutrin Sr (Bupropion HCl) 100 Mg Ertab 1 Tab PO BID 06/24/16 Reported Nizatidine 300 Mg Cap 1 Cap PO BID 06/24/16 Reported Tamsulosin HCl 0.4 Mg Cap 1 Cap PO DAILY 06/24/16 Reported Whitman 5MG/325MG (Acetaminophen/Hydrocodone Bitart) Tab 1-2 Tab PO Q4H PRN 01/28/15 Rx PRN PAIN Melatonin 10 Mg Cap 10 Mg PO HS PRN 11/08/13 Reported Glucosamine Chondroitin 1 (Njyapjdurwn-Hrqtqurwgid-Hor C-) 1 Cap Cap 1 Cap PO QAM 11/08/13 Reported Multi For Her (Multiple Vitamins W/ Minerals) 1 Cap Cap 1 Cap PO QAM 11/08/13 Reported Zyrtec (Cetirizine Hcl) 10 Mg Tab 10 Mg PO QAM 11/08/13 Reported Synthroid (Levothyroxine Sodium) 125 Mcg Tab 125 Mcg PO QAM 11/08/13 Reported Tenormin (Atenolol) 25 Mg Tab 25 Mg PO BID 11/08/13 Reported Current Inpatient Medications Current Inpatient Medications Medications (Trade) Dose Ordered Sig/Devang Route Start Time Stop Time Status Last Admin Dose Admin Potassium Chloride/Dextrose/ Sod Cl (D5W And 1/2nss + 20meq KCl) 1,000 ml @ 125 mls/hr Q8H IV 06/24/16 20:30 07/24/16 20:29 06/25/16 04:49 125 MLS/HR Ondansetron HCl (Zofran Inj) 4 mg Q4H PRN IV 06/24/16 19:00 07/24/16 18:59 Hydromorphone HCl (Dilaudid Inj) 0.6 mg Q3H PRN IV 06/24/16 19:00 07/08/16 18:59 Hydromorphone HCl (Dilaudid Inj) 1 mg Q3H PRN IV 06/24/16 19:00 07/08/16 18:59 Lactobacillus Acidophilus 4 tab 4 tab TIDM PO 06/25/16 08:30 07/25/16 08:29 06/25/16 08:35 4 TAB Vancomycin HCl/ Sodium Chloride (Vancomycin Inj/ Nss 250ml) 272 ml @ 125 mls/hr Q10H IV 06/25/16 16:00 07/05/16 15:59 Vancomycin HCl 1 ea 1 ea UD PRN N/A 06/25/16 06:45 07/05/16 06:44 Metronidazole 500 mg/Prmx 100 ml @ 100 mls/hr Q8@,, IV 06/25/16 10:00 07/05/16 09:59 06/25/16 10:22 100 MLS/HR Aztreonam/Dextrose (Azactam IV/D5 100ml) 110 ml @ 110 mls/hr Q8H IV 06/25/16 12:00 07/05/16 11:59 Aztreonam (Consult) 1 ea UD PRN N/A 06/25/16 09:15 07/25/16 09:14 Review of Systems Constitutional: + chills, + sweats (chronic), No fever Eyes: No worsening of vision ENT: No hearing loss Respiratory: No cough, No shortness of breath Cardiovascular: No chest pain, No palpitations Abdomen: + pain, No diarrhea, No nausea, No vomiting Musculoskeletal: + problem reported (mild pain in the right medial thigh- varicosity), No joint pain Genitourinary - Female: No dysuria, No urinary frequency Integumentary: No itch, No new/changing skin lesions, No rash Physical Exam Date Time Temp Pulse Resp B/P Pulse Ox O2 Delivery O2 Flow Rate FiO2 06/25/16 07:25 36.4 63 16 112/64 97 Room Air 06/25/16 07:10 Room Air 06/25/16 03:24 36.4 62 17 106/67 99 Nasal Cannula 2.0 06/24/16 23:52 Nasal Cannula 2.0 06/24/16 23:00 36.8 82 16 111/68 96 Nasal Cannula 2.0 06/24/16 21:00 37.2 84 16 125/79 98 Nasal Cannula 2.0 06/24/16 20:30 37.2 85 16 122/73 99 Nasal Cannula 2.0 06/24/16 20:00 37.1 92 16 115/70 100 Nasal Cannula 2.0 06/24/16 20:00 100 Nasal Cannula 2.0 06/24/16 19:57 92 06/24/16 19:57 92 100 06/24/16 19:55 114/68 06/24/16 19:52 90 18 100 06/24/16 19:52 90 18 06/24/16 19:50 110/68 06/24/16 19:47 90 17 100 06/24/16 19:47 91 17 06/24/16 19:45 115/52 06/24/16 19:42 92 15 06/24/16 19:42 91 15 100 06/24/16 19:40 105/67 06/24/16 19:37 92 16 06/24/16 19:37 90 16 100 06/24/16 19:36 111/51 06/24/16 19:32 93 12 06/24/16 19:32 91 12 99 06/24/16 19:32 37.2 92 22 111/51 100 Nasal Cannula 2 06/24/16 19:30 111/92 06/24/16 19:27 91 19 06/24/16 19:27 90 19 100 06/24/16 19:26 120/57 06/24/16 19:22 89 18 100 06/24/16 19:22 88 18 06/24/16 19:21 90 14 06/24/16 19:21 88 14 100 06/24/16 19:20 118/55 06/24/16 19:16 88 20 115/63 100 06/24/16 19:16 89 20 06/24/16 19:11 90 17 06/24/16 19:11 88 17 100 06/24/16 19:10 145/68 06/24/16 19:06 94 9 06/24/16 19:06 94 9 136/65 100 06/24/16 19:06 37.5 93 16 136/65 98 Mask 10 06/24/16 17:04 96 19 96 06/24/16 17:01 96 Room Air 06/24/16 15:44 37.7 86 18 134/84 96 Room Air General Appearance: no apparent distress, + obese Head: normocephalic, atraumatic Eyes: normal inspection, sclerae normal ENT: hearing grossly normal Neck: supple, trachea midline Respiratory/Chest: chest non-tender, normal breath sounds, no respiratory distress, no accessory muscle use, + crackles (mild crackles bilateral lower lobes) Cardiovascular: regular rate, rhythm, no murmur Abdomen/GI: normal bowel sounds, + tenderness (mild tenderness of abdomen), + pertinent finding (abdomen with dressing in place) Back: normal inspection Extremities/Musculoskelatal: + pertinent finding (mild tenderness of right inner thigh- indurated varicosity noted) Neurologic/Psych: alert, normal mood/affect Skin: normal color, warm/dry, no rash Laboratory Results CHEST ONE VIEW PORTABLE CLINICAL HISTORY: Sepsis dyspnea COMPARISON STUDY: 11/30/2013 FINDINGS: The bones soft tissues and hemidiaphragms are normal. The cardiomediastinal silhouette is normal. The lungs are clear. The pulmonary vasculature is normal. IMPRESSION: Negative chest. RUN DATE: 06/25/16 [facility] LAB PAGE 1 RUN TIME: 958 Specimen Inquiry PATIENT: KRYSTA VALENTINO LOC: [place] U # : [id number] AGE/SX: 71/F ROOM: [facility] REG : 06/24/[address]: Cecy Fragoso MD : 1945 BED: 1 DIS : STATUS: ADM IN TLOC: SPEC #: [id number] OLU: 06/24/16 STATUS: RES REQ #: [id number] RECD: 06/24/[address]: Arie Hernandez M.D. SOURCE: ABSCESS ENTR: 06/24/16 [facility] DR: Danyell Austin M.D. SPDESC: ABD ORDERED: AER/LIS CULTSMR Procedure Result Verified Site GRAM STAIN Final 06/25/16-958 RESULT MANY WBCs SEEN MODERATE GRAM NEGATIVE BACILLI MODERATE GRAM POSITIVE COCCI OR AER/LIS CULT Results Pending Item Value Date Time Gram Stain - Final Resulted 06/24/16 1830 Abscess Abdomen Blood Culture Received 06/24/16 1716 Blood Pending Blood Culture Received 06/24/16 1710 Blood Pending Last 24 Hours Test 06/24/16 17:16 06/24/16 17:27 06/25/16 06:28 White Blood Count 18.03 K/uL 13.09 K/uL Red Blood Count 3.65 M/uL 3.42 M/uL Hemoglobin 9.3 g/dL 8.6 g/dL Hematocrit 30.1 % 28.4 % Mean Corpuscular Volume 82.5 fL 83.0 fL Mean Corpuscular Hemoglobin 25.5 pg 25.1 pg Mean Corpuscular Hemoglobin Concent 30.9 g/dl 30.3 g/dl Platelet Count 467 K/uL 385 K/uL Mean Platelet Volume 9.5 fL 9.0 fL Neutrophils (%) (Auto) 82.4 % 90.6 % Lymphocytes (%) (Auto) 5.2 % 4.5 % Monocytes (%) (Auto) 11.9 % 4.6 % Eosinophils (%) (Auto) 0.1 % 0.0 % Basophils (%) (Auto) 0.1 % 0.1 % Neutrophils # (Auto) 14.86 K/uL 11.87 K/uL Lymphocytes # (Auto) 0.94 K/uL 0.59 K/uL Monocytes # (Auto) 2.14 K/uL 0.60 K/uL Eosinophils # (Auto) 0.02 K/uL 0.00 K/uL Basophils # (Auto) 0.02 K/uL 0.01 K/uL RDW Standard Deviation 51.2 fL 51.7 fL RDW Coefficient of Variation 16.8 % 16.9 % Immature Granulocyte % (Auto) 0.3 % 0.2 % Immature Granulocyte # (Auto) 0.05 K/uL 0.02 K/uL Prothrombin Time 12.0 SECONDS Prothromb Time International Ratio 1.1 Activated Partial Thromboplast Time 32.3 SECONDS Partial Thromboplastin Ratio 1.2 Sodium Level 136 mmol/L 140 mmol/L Potassium Level 3.8 mmol/L 4.1 mmol/L Chloride Level 101 mmol/L 107 mmol/L Carbon Dioxide Level 26 mmol/L 29 mmol/L Anion Gap 9.0 mmol/L 4.0 mmol/L Blood Urea Nitrogen 9 mg/dl 7 mg/dl Creatinine 0.72 mg/dl 0.64 mg/dl Est Creatinine Clear Calc Drug Dose 69.9 ml/min 79.3 ml/min Estimated GFR () 98.3 104.8 Estimated GFR (Non- 84.9 90.4 BUN/Creatinine Ratio 13.1 10.6 Random Glucose 103 mg/dl 199 mg/dl Calcium Level 9.7 mg/dl 9.4 mg/dl Total Bilirubin 0.4 mg/dl 0.3 mg/dl Aspartate Amino Transf (AST/SGOT) 19 U/L 127 U/L Alanine Aminotransferase (ALT/SGPT) 19 U/L 96 U/L Alkaline Phosphatase 145 U/L 277 U/L Total Protein 7.5 gm/dl 6.6 gm/dl Albumin 2.5 gm/dl 2.0 gm/dl Globulin 5.0 gm/dl 4.6 gm/dl Albumin/Globulin Ratio 0.5 0.4 Bedside Lactic Acid Venous 1.10 mmol/L Red Blood Cell Morphology Unremarkable Hepatitis C Antibody Screen NEG Assessment & Plan 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 Cultures pending. She is currently on IV Vancomycin, Aztreonam, and Flagyl. This seems appropriate with PCN allergy. We will narrow abx when cultures are available if able. This patient will likely need multiple days of IV abx therapy. PROVIDER ADDENDUM: Patient examined and reviewed with Ms. Campuzano. Agree with above assessment.
[2016-06-25] MEDS: HYDROmorphone INJ 1 MG/ML SYR IV PRN ×2 (11:49→20:01)
[2016-06-25 13:50] VITALS: BP 99/58; PULSE 66; TEMP 36.4
--- NOTE | 2016-06-25 15:26 | Hospitalist Progress Note ---
Hospitalist Progress Note Date of Service Jun 25, 2016. Subjective Pt evaluation today including: conversation w/ patient, conversation w/ family , physical exam, chart review, lab review, review of studies, conversation w/ budget consultant, review of inpatient medication list Patient reports minimal abdominal pain today. No fever or chills. Passing gas today. No bowel movements yet. Denies chest pain, pressure or heart palpitations. No shortness of breath or dizziness. She does note some pain in her right upper inner aspect of the thigh. This has been going on for approximately 1-2 weeks. Additional Comments: 6 system review negative. Please see pertinent positives in the history of present illness section. Objective Vital Signs Date Time Temp Pulse Resp B/P Pulse Ox O2 Delivery O2 Flow Rate FiO2 06/25/16 13:50 36.4 66 16 99/58 Room Air 06/25/16 07:25 36.4 63 16 112/64 97 Room Air 06/25/16 07:10 Room Air 06/25/16 03:24 36.4 62 17 106/67 99 Nasal Cannula 2.0 06/24/16 23:52 Nasal Cannula 2.0 06/24/16 23:00 36.8 82 16 111/68 96 Nasal Cannula 2.0 06/24/16 21:00 37.2 84 16 125/79 98 Nasal Cannula 2.0 06/24/16 20:30 37.2 85 16 122/73 99 Nasal Cannula 2.0 06/24/16 20:00 37.1 92 16 115/70 100 Nasal Cannula 2.0 06/24/16 20:00 100 Nasal Cannula 2.0 06/24/16 19:57 92 06/24/16 19:57 92 100 06/24/16 19:55 114/68 06/24/16 19:52 90 18 100 06/24/16 19:52 90 18 06/24/16 19:50 110/68 06/24/16 19:47 90 17 100 06/24/16 19:47 91 17 06/24/16 19:45 115/52 06/24/16 19:42 92 15 06/24/16 19:42 91 15 100 06/24/16 19:40 105/67 06/24/16 19:37 92 16 06/24/16 19:37 90 16 100 06/24/16 19:36 111/51 06/24/16 19:32 93 12 06/24/16 19:32 91 12 99 06/24/16 19:32 37.2 92 22 111/51 100 Nasal Cannula 2 06/24/16 19:30 111/92 06/24/16 19:27 91 19 06/24/16 19:27 90 19 100 06/24/16 19:26 120/57 06/24/16 19:22 89 18 100 06/24/16 19:22 88 18 06/24/16 19:21 90 14 06/24/16 19:21 88 14 100 06/24/16 19:20 118/55 06/24/16 19:16 88 20 115/63 100 06/24/16 19:16 89 20 06/24/16 19:11 90 17 06/24/16 19:11 88 17 100 06/24/16 19:10 145/68 06/24/16 19:06 94 9 06/24/16 19:06 94 9 136/65 100 06/24/16 19:06 37.5 93 16 136/65 98 Mask 10 06/24/16 17:04 96 19 96 06/24/16 17:01 96 Room Air 06/24/16 15:44 37.7 86 18 134/84 96 Room Air Physical Exam General Appearance: no apparent distress Eyes: EOMI ENT: + pertinent finding (oral mucosa dry) Neck: no JVD Respiratory/Chest: lungs clear Cardiovascular: regular rate, rhythm Abdomen: normal bowel sounds, non tender, soft, + pertinent finding (dressing clean, dry and intact) Extremities: no pedal edema, + pertinent finding (mild tenderness to palpation over a palpable cord noted in the medial aspect of the right thigh. No surrounding erythema or edema noted.) Neurologic/Psychiatric: no motor/sensory deficits, oriented x 3 Skin: warm/dry Laboratory Results 06/25/16 06:28 Red Blood Count 3.42, Mean Corpuscular Volume 83.0, Mean Corpuscular Hemoglobin 25.1, Mean Corpuscular Hemoglobin Concent 30.3, Mean Platelet Volume 9.0, Neutrophils (%) (Auto) 90.6, Lymphocytes (%) (Auto) 4.5, Monocytes (%) (Auto) 4.6, Eosinophils (%) (Auto) 0.0, Basophils (%) (Auto) 0.1, Neutrophils # (Auto) 11.87, Lymphocytes # (Auto) 0.59, Monocytes # (Auto) 0.60, Eosinophils # (Auto) 0.00, Basophils # (Auto) 0.01 06/25/16 06:28 Test 06/24/16 17:16 06/24/16 17:27 06/25/16 06:28 Prothrombin Time 12.0 SECONDS (9.0-12.0) Prothromb Time International Ratio 1.1 (0.9-1.1) Activated Partial Thromboplast Time 32.3 SECONDS (21.0-31.0) Partial Thromboplastin Ratio 1.2 Bedside Lactic Acid Venous 1.10 mmol/L (0.90-1.70) White Blood Count 13.09 K/uL (4.8-10.8) Red Blood Count 3.42 M/uL (4.2-5.4) Hemoglobin 8.6 g/dL (12.0-16.0) Hematocrit 28.4 % (37-47) Mean Corpuscular Volume 83.0 fL (80-100) Mean Corpuscular Hemoglobin 25.1 pg (25-34) Mean Corpuscular Hemoglobin Concent 30.3 g/dl (32-36) Platelet Count 385 K/uL (130-400) Mean Platelet Volume 9.0 fL (7.4-10.4) Neutrophils (%) (Auto) 90.6 % Lymphocytes (%) (Auto) 4.5 % Monocytes (%) (Auto) 4.6 % Eosinophils (%) (Auto) 0.0 % Basophils (%) (Auto) 0.1 % Neutrophils # (Auto) 11.87 K/uL (1.4-6.5) Lymphocytes # (Auto) 0.59 K/uL (1.2-3.4) Monocytes # (Auto) 0.60 K/uL (0.11-0.59) Eosinophils # (Auto) 0.00 K/uL (0-0.5) Basophils # (Auto) 0.01 K/uL (0-0.2) RDW Standard Deviation 51.7 fL (36.4-46.3) RDW Coefficient of Variation 16.9 % (11.5-14.5) Immature Granulocyte % (Auto) 0.2 % Immature Granulocyte # (Auto) 0.02 K/uL (0.00-0.02) Red Blood Cell Morphology Unremarkable Anion Gap 4.0 mmol/L (3-11) Est Creatinine Clear Calc Drug Dose 79.3 ml/min Estimated GFR () 104.8 Estimated GFR (Non- 90.4 BUN/Creatinine Ratio 10.6 (10-20) Calcium Level 9.4 mg/dl (8.5-10.1) Total Bilirubin 0.3 mg/dl (0.2-1) Aspartate Amino Transf (AST/SGOT) 127 U/L (15-37) Alanine Aminotransferase (ALT/SGPT) 96 U/L (12-78) Alkaline Phosphatase 277 U/L (45-117) Total Protein 6.6 gm/dl (6.4-8.2) Albumin 2.0 gm/dl (3.4-5.0) Globulin 4.6 gm/dl (2.5-4.0) Albumin/Globulin Ratio 0.4 (0.9-2) Hepatitis C Antibody Screen NEG (NEG) Last 24 Hours Test 06/24/16 17:16 06/24/16 17:27 06/25/16 06:28 White Blood Count 18.03 K/uL 13.09 K/uL Red Blood Count 3.65 M/uL 3.42 M/uL Hemoglobin 9.3 g/dL 8.6 g/dL Hematocrit 30.1 % 28.4 % Mean Corpuscular Volume 82.5 fL 83.0 fL Mean Corpuscular Hemoglobin 25.5 pg 25.1 pg Mean Corpuscular Hemoglobin Concent 30.9 g/dl 30.3 g/dl Platelet Count 467 K/uL 385 K/uL Mean Platelet Volume 9.5 fL 9.0 fL Neutrophils (%) (Auto) 82.4 % 90.6 % Lymphocytes (%) (Auto) 5.2 % 4.5 % Monocytes (%) (Auto) 11.9 % 4.6 % Eosinophils (%) (Auto) 0.1 % 0.0 % Basophils (%) (Auto) 0.1 % 0.1 % Neutrophils # (Auto) 14.86 K/uL 11.87 K/uL Lymphocytes # (Auto) 0.94 K/uL 0.59 K/uL Monocytes # (Auto) 2.14 K/uL 0.60 K/uL Eosinophils # (Auto) 0.02 K/uL 0.00 K/uL Basophils # (Auto) 0.02 K/uL 0.01 K/uL RDW Standard Deviation 51.2 fL 51.7 fL RDW Coefficient of Variation 16.8 % 16.9 % Immature Granulocyte % (Auto) 0.3 % 0.2 % Immature Granulocyte # (Auto) 0.05 K/uL 0.02 K/uL Prothrombin Time 12.0 SECONDS Prothromb Time International Ratio 1.1 Activated Partial Thromboplast Time 32.3 SECONDS Partial Thromboplastin Ratio 1.2 Sodium Level 136 mmol/L 140 mmol/L Potassium Level 3.8 mmol/L 4.1 mmol/L Chloride Level 101 mmol/L 107 mmol/L Carbon Dioxide Level 26 mmol/L 29 mmol/L Anion Gap 9.0 mmol/L 4.0 mmol/L Blood Urea Nitrogen 9 mg/dl 7 mg/dl Creatinine 0.72 mg/dl 0.64 mg/dl Est Creatinine Clear Calc Drug Dose 69.9 ml/min 79.3 ml/min Estimated GFR () 98.3 104.8 Estimated GFR (Non- 84.9 90.4 BUN/Creatinine Ratio 13.1 10.6 Random Glucose 103 mg/dl 199 mg/dl Calcium Level 9.7 mg/dl 9.4 mg/dl Total Bilirubin 0.4 mg/dl 0.3 mg/dl Aspartate Amino Transf (AST/SGOT) 19 U/L 127 U/L Alanine Aminotransferase (ALT/SGPT) 19 U/L 96 U/L Alkaline Phosphatase 145 U/L 277 U/L Total Protein 7.5 gm/dl 6.6 gm/dl Albumin 2.5 gm/dl 2.0 gm/dl Globulin 5.0 gm/dl 4.6 gm/dl Albumin/Globulin Ratio 0.5 0.4 Bedside Lactic Acid Venous 1.10 mmol/L Red Blood Cell Morphology Unremarkable Hepatitis C Antibody Screen NEG Assessment and Plan 71-year-old female presented to the emergency department with abdominal pain found to have a right-sided abdominal abscess with possible associated fistula Abdominal abscess status post I and D on 06/24 for surgery -Advance diet today per surgery recommendations -Continue vanco, aztreonam and Flagyl -Agree with infectious disease consult History of gastric ulcer s/p gastric bypass -Substitute Nizatidine with pantoprazole 40 mg daily while in house Hypothyroidism -Restart Synthroid at outpatient dose Anemia-element of acute blood loss -stable for outpt workup -follow H&H daily History of paroxysmal SVT -Restart atenolol 25 mg po BID tonight with hold parameters Right lower extremity pain-likely superficial thrombophlebitis -Ultrasound lower extremity to rule out DVT given history of surgery -Would avoid NSAIDS and ASA in this pt with history of gastric bypass -Warm compresses as needed Recommend DVT prophylaxis with heparin 5000 units subcutaneous twice a day if okay with primary team Thank you for this consult. We'll continue to follow. This chart was completed in part utilizing [employer] Speech Voice Recognition software. Attempts were made to minimize the grammatical errors, random word insertions, pronoun errors and incomplete sentences. Any formal questions or concerns about the content, text or information contained within the body of this dictation should be directly addressed to the provider for clarification.
[2016-06-25] MEDS ORDERED: CETIRIZINE HCL 10 MG TAB PO ONE (15:30)
[2016-06-25 15:35] VITALS: BP 151/81; PULSE 61; TEMP 36.3; O2SAT 98
[2016-06-25] MEDS ORDERED: NURSING VERBAL MED ORDER ONE (16:30)
--- NOTE | 2016-06-25 16:42 | DIAGNOSTIC IMAGING REPORT ---
Venous Doppler right leg RIGHT VENOUS DOPP LOWER EXT UNILAT CLINICAL HISTORY: right lower extremity pain particularly in the groin Right pain. Edema. TECHNIQUE: Venous Doppler COMPARISON STUDY: None FINDINGS: Findings of scar partially thrombosed superficial veins of the thigh. All major deep venous structures are intact. No evidence for deep venous thrombosis. IMPRESSION: 1. Study is negative for acute deep venous thrombosis. 2. Focal superficial thrombophlebitis of the thigh Electronically signed by: Ar Last M.D. 06/25/2016 4:40 PM Dictated Date/Time: 06/25/2016 4:36 PM
[2016-06-25] MEDS: VANCOMYCIN INJ 1,100 MG in SODIUM CHLORIDE 0.9% 250ML 250 ML IV SCH (16:49)
[2016-06-25] MEDS: LEVOTHYROXINE 125 MCG TAB PO SCH (16:54)
[2016-06-25] MEDS: BuPROPion SR 100 MG TABCR PO SCH (20:53)
[2016-06-25 20:56] VITALS: BP 117/78; PULSE 74
[2016-06-25] MEDS ORDERED: NIZATIDINE 150 MG PO SCH (21:00)
[2016-06-25 23:37] VITALS: BP_SYST 104; BP_SYST 124; BP_DIAS 57; BP_DIAS 68; PULSE 86; PULSE 88; TEMP 36.6; TEMP 37.8; O2SAT 96; O2SAT 97
[2016-06-26] MEDS: METRONIDAZOLE 500MG / NSS IV SCH ×3 (01:03→17:39)
[2016-06-26] MEDS: VANCOMYCIN INJ 1,100 MG in SODIUM CHLORIDE 0.9% 250ML 250 ML IV SCH ×3 (02:08→23:49)
[2016-06-26] MEDS: AZTREONAM 2000 MG in DEXTROSE 5% 100 ML IV SCH (04:20)
[2016-06-26] MEDS: LEVOTHYROXINE 125 MCG TAB PO SCH (05:46)
[2016-06-26 06:54] VITALS: BP 106/63; PULSE 54; TEMP 36.6; O2SAT 97
[2016-06-26 07:35] LABS: CREATININE 0.66 mg/dl (0.60-1.20)
--- NOTE | 2016-06-26 07:36 | Clinical Documentation Query ---
MS. WRIGHTPEPE : CLINICAL DOCUMENTATION QUERY Patient is a 71 year old female who presented for evaluation of abdominal pain, found to have right side abdominal abscess. H&P, medicine, and ID notes mention the possibility of an associated intestinal fistula. Subsequent surgical progress notes have discontinued this documentation. Operative record notes it was "difficult to tell this was bowel fistula or not", which does not necessarily rule it out. She has been treated with I&D, IV antibiotics, wound care, and ID consultation. As appropriate, consider clarification as suggested below as this directly impacts DRG assignment. Thank you. In your clinical opinion is this patient being managed for: ( x ) Abdominal abscess with possible (or suspected/likely, etc.) intestinal fistula ( ) Other explanation of clinical findings (Please Explain) ( ) Unable to determine (Please Define) ( ) Need to Discuss ( ) Not Agree The medical record reflects the following clinical findings, treatment, and risk factors. Clinical Indicators: As above Treatment:She has been treated with I&D, IV antibiotics, wound care, and ID consultation Risk Factors:Age, duodenal/gastric ulcer perforation with repair, GBP Please clarify and document your clinical opinion in the progress notes and discharge summary. Terms such as "probable", "suspected", "likely", "questionable", "possible", or "still to be ruled out" are acceptable. IF IN AGREEMENT, YOU MUST DOCUMENT ABOVE DIAGNOSTIC STATEMENT IN DAILY PROGRESS NOTES AND DISCHARGE SUMMARY. This document is not part of the patient's record. Thank You, Ariel Du, JHONATHAN [phone]
--- NOTE | 2016-06-26 07:37 | Clinical Documentation Query ---
CHARLES Crowder : CLINICAL DOCUMENTATION QUERY Patient is a 71 year old female who presented for evaluation of abdominal pain, found to have right side abdominal abscess. H&P, medicine, and ID notes mention the possibility of an associated intestinal fistula. Subsequent surgical progress notes have discontinued this documentation. Operative record notes it was "difficult to tell this was bowel fistula or not", which does not necessarily rule it out. She has been treated with I&D, IV antibiotics, wound care, and ID consultation. As appropriate, consider clarification as suggested below as this directly impacts DRG assignment and avoids potential demographic analyst confusion at discharge. Thank you. In your clinical opinion is this patient being managed for: ( ) Abdominal abscess with possible (or suspected/likely, etc.) intestinal fistula ( ) Other explanation of clinical findings (Please Explain) ( ) Unable to determine (Please Define) ( ) Need to Discuss ( ) Not Agree The medical record reflects the following clinical findings, treatment, and risk factors. Clinical Indicators: As above Treatment:She has been treated with I&D, IV antibiotics, wound care, and ID consultation Risk Factors:Age, duodenal/gastric ulcer perforation with repair, GBP Please clarify and document your clinical opinion in the progress notes and discharge summary. Terms such as "probable", "suspected", "likely", "questionable", "possible", or "still to be ruled out" are acceptable. IF IN AGREEMENT, YOU MUST DOCUMENT ABOVE DIAGNOSTIC STATEMENT IN DAILY PROGRESS NOTES AND DISCHARGE SUMMARY. This document is not part of the patient's record. Thank You, Ariel Du, RN [phone]
[2016-06-26] MEDS: HYDROmorphone INJ 1 MG/ML SYR IV PRN ×2 (08:01→17:17)
[2016-06-26] MEDS: CETIRIZINE HCL 10 MG TAB PO SCH (08:55)
[2016-06-26] MEDS: BuPROPion SR 100 MG TABCR PO SCH ×2 (08:55→20:41)
[2016-06-26] MEDS: LACTOBACILLUS ACIDOPHILUS (FLORANEX) TAB PO SCH ×3 (08:55→17:35)
[2016-06-26] MEDS: TAMSULOSIN HCL 0.4 MG CAP PO SCH (08:55)
[2016-06-26] MEDS: NIZATIDINE PO SCH ×2 (08:56→20:40)
[2016-06-26] MEDS: D5W AND 1/2NSS + 20MEQ KCL 1,000 ML IV SCH ×2 (10:37→23:46)
[2016-06-26] MEDS ORDERED: VANCOMYCIN TROUGH SCH (11:30)
--- NOTE | 2016-06-26 13:05 | Infectious Disease Progress Nt ---
Progress Note Date of Service Jun 26, 2016. Subjective Pt evaluation today including: conversation w/ patient, conversation w/ family (), physical exam, chart review, lab review, review of studies, review of inpatient medication list Patient states that she has had some mild increased pain on an off today In her abdomen. repeat creatinine was stable at 0.66. The patient's blood cultures are showing no growth today. Her surgical cultures is growing Klebsiella oxytoca and a second GNB which is still pending identification. She continues on IV vancomycin, IV aztreonam, and Flagyl. She is tolerating his medications well. She states that she has not moved her bowels yet, and she is requesting a stool softener. Otherwise she has not had any repeat images completed. All Other Systems: Reviewed and Negative Medications Current Inpatient Medications Medications (Trade) Dose Ordered Sig/Devang Route Start Time Stop Time Status Last Admin Dose Admin Potassium Chloride/Dextrose/ Sod Cl (D5W And 1/2nss + 20meq KCl) 1,000 ml @ 80 mls/hr [id number] IV 06/24/16 20:30 07/24/16 20:29 06/26/16 10:37 80 MLS/HR Ondansetron HCl (Zofran Inj) 4 mg Q4H PRN IV 06/24/16 19:00 07/24/16 18:59 Hydromorphone HCl (Dilaudid Inj) 0.6 mg Q3H PRN IV 06/24/16 19:00 07/08/16 18:59 Hydromorphone HCl (Dilaudid Inj) 1 mg Q3H PRN IV 06/24/16 19:00 07/08/16 18:59 06/26/16 08:01 1 MG Lactobacillus Acidophilus 4 tab 4 tab TIDM PO 06/25/16 08:30 07/25/16 08:29 06/26/16 08:55 4 TAB Vancomycin HCl/ Sodium Chloride (Vancomycin Inj/ Nss 250ml) 272 ml @ 125 mls/hr Q10H IV 06/25/16 16:00 07/05/16 15:59 06/26/16 02:08 125 MLS/HR Vancomycin HCl 1 ea 1 ea UD PRN N/A 06/25/16 06:45 07/05/16 06:44 Metronidazole/Prmx (Flagyl / Nss/ Premixed Nss) 100 ml @ 100 mls/hr Q8@02,10,18 IV 06/25/16 10:00 07/05/16 09:59 06/26/16 10:36 100 MLS/HR Atenolol (Tenormin Tab) 25 mg BID PO 06/25/16 21:00 07/25/16 20:59 06/26/16 08:55 25 MG Bupropion HCl (Wellbutrin-Sr Tab) 100 mg BID PO 06/25/16 21:00 07/25/16 20:59 06/26/16 08:55 100 MG Cetirizine HCl (zyrTEC TAB) 10 mg QAM PO 06/26/16 09:00 07/26/16 08:59 06/26/16 08:55 10 MG Levothyroxine Sodium (Synthroid Tab) 125 mcg DAILYBB PO 06/25/16 15:15 07/25/16 15:14 06/26/16 05:46 125 MCG Tamsulosin HCl (Flomax Cap) 0.4 mg DAILY PO 06/26/16 09:00 07/26/16 08:59 06/26/16 08:55 0.4 MG Nizatidine 300 mg 300 mg BID PO 06/26/16 09:00 07/26/16 08:59 06/26/16 08:56 300 MG Cefepime HCl/ Dextrose (Maxipime IV/D5 100ml) 112.5 ml @ 200 mls/hr Q8H IV 06/26/16 14:00 07/06/16 13:59 Objective Vital Signs Date Time Temp Pulse Resp B/P Pulse Ox O2 Delivery O2 Flow Rate FiO2 06/26/16 06:54 36.6 54 17 106/63 97 Room Air 06/25/16 23:37 36.6 88 19 104/68 96 Room Air 06/25/16 23:30 Room Air 06/25/16 20:56 74 117/78 06/25/16 16:10 Room Air 06/25/16 15:35 36.3 61 16 151/81 98 Room Air 06/25/16 13:50 36.4 66 16 99/58 Room Air Physical Exam General Appearance: no apparent distress, + obese Eyes: normal inspection, sclerae normal ENT: hearing grossly normal Neck: supple, trachea midline Respiratory/Chest: no respiratory distress, no accessory muscle use Cardiovascular: regular rate, rhythm Abdomen: + tenderness (Very mild tenderness of the surrounding area.), + pertinent finding (Dressing on the right side of abdomen. C/D/I.) Neurologic/Psychiatric: alert, normal mood/affect Skin: normal color, warm/dry, no rash Laboratory Results RUN DATE: 06/26/16 [facility] LAB PAGE 1 RUN TIME: 1120 Specimen Inquiry PATIENT: KRYSTA VALENTINO LOC: [facility] U # : [id number] AGE/SX: 71/F ROOM: [facility] REG : 06/24/[address]: Cecy Fragoso MD : [id number] BED: 1 DIS : STATUS: ADM IN TLOC: SPEC #: [id number] OLU: 06/24/16 STATUS: RES REQ #: [id number] RECD: 06/24/[address] [facility] [address]: Arie Hernandez M.D. SOURCE: ABSCESS ENTR: 06/24/[address] [facility] [address]: Danyell Austin M.D. [facility]: ABD ORDERED: AER/LIS CULTSMR Procedure Result Verified Site GRAM STAIN Final 06/25/16 RESULT MANY WBCs SEEN MODERATE GRAM NEGATIVE BACILLI MODERATE GRAM POSITIVE COCCI OR AER/LIS CULT Preliminary 06/26/16 Organism 1 KLEBSIELLA OXYTOCA QUANITY FEW SENS SENSITIVITY TO FOLLOW Organism 2 GRAM NEGATIVE BACILLI#2 QUANITY FEW SENS SENSITIVITY TO FOLLOW 1. KLEBSIELLA OXYTOCA Target Route Dose RX AB Cost M.I.C. IQ ------ ----- ------ -- ------ -------- - ------ TRIMET/SULFA S <=2/38 AMPICILLIN/SUL I 16/8 CEFAZOLIN R >16 CEFOTAXIME S <=2 CEFTRIAXONE S <=1 CEFEPIME S <=4 CEFUROXIME S <=4 IMIPENEM S <=1 GENTAMICIN S <=4 TOBRAMYCIN S <=4 AMIKACIN S <=16 CIPROFLOXACIN S <=1 LEVOFLOXACIN S <=2 ERTAPENEM S <=1 PIP/TAZO S <=16 S = SENSITIVE I = INTERMEDIATE R = RESISTANT Item Value Date Time Gram Stain - Final Resulted 06/24/16 1830 Abscess Abdomen Blood Culture - Preliminary Resulted 06/24/16 1716 Blood NO GROWTH TO DATE. Blood Culture - Preliminary Resulted 06/24/16 1710 Blood NO GROWTH TO DATE. 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 Cultures growing Klebsiella oxytoca and another gram-negative bacilli pending identification. She is currently on IV Vancomycin, Aztreonam, and Flagyl. After discussion with pharmacy, will change from IV aztreonam to IV cefepime pending identification other gram-negative bacilli. Due to the patient's history of Enterococcus, will also continue IV vancomycin pending culture. This patient likely will need at least 1-2 weeks of IV abx therapy with repeat CT scan prior to discontinuation. We will continue to follow. PROVIDER ADDENDUM: Patient reviewed with Ms. Campuzano. Agree with above assessment.
--- NOTE | 2016-06-26 13:46 | Pharmacy Progress Note ---
Pharmacy Antibiotic Prog Note Date of Service Jun 26, 2016. Subjective The patient is currently receiving Vancomycin 1100 mg IV every 10 hours. The patient is currently on day # 2 of IV therapy. Objective Height (Feet): 5 Height (Inches): 0.00 Weight (Kilograms): 85.200 Levels: Item Value Date Time Vancomycin Level Trough 17.7 mcg/ml 06/26/16 1127 Lab Results (24hrs): Laboratory Tests Test 06/26/16 07:05 Creatinine 0.66 mg/dl Micro Results: Item Value Date Time Gram Stain - Final Resulted 06/24/16 1830 Abscess Abdomen GRAM STAIN Final 06/25/16-59 RESULT MANY WBCs SEEN MODERATE GRAM NEGATIVE BACILLI MODERATE GRAM POSITIVE COCCI OR AER/LIS CULT Preliminary 06/26/16-1119 Organism 1 KLEBSIELLA OXYTOCA QUANITY FEW SENS SENSITIVITY TO FOLLOW Organism 2 GRAM NEGATIVE BACILLI#2 QUANITY FEW SENS SENSITIVITY TO FOLLOW 1. KLEBSIELLA OXYTOCA Target Route Dose RX AB Cost M.I.C. IQ ------ ----- ------ -- ------ -------- - ------ TRIMET/SULFA S <=2/38 AMPICILLIN/SUL I 16/8 CEFAZOLIN R >16 CEFOTAXIME S <=2 CEFTRIAXONE S <=1 CEFEPIME S <=4 CEFUROXIME S <=4 IMIPENEM S <=1 GENTAMICIN S <=4 TOBRAMYCIN S <=4 AMIKACIN S <=16 CIPROFLOXACIN S <=1 LEVOFLOXACIN S <=2 ERTAPENEM S <=1 PIP/TAZO S <=16 S = SENSITIVE I = INTERMEDIATE R = RESISTANT Blood Culture - Preliminary Resulted 06/24/16 1716 Blood NO GROWTH TO DATE. Blood Culture - Preliminary Resulted 06/24/16 1710 Blood NO GROWTH TO DATE. Recent Pertinent Medications Item Value Date Time Vancomycin HCl 272 ml @ 125 mls/hr 06/27/16 0000 1100 mg/Sodium Q12H/IV Chloride Cefepime HCl 2000 112.5 ml @ 200 mls/hr 06/26/16 1400 mg/Dextrose Q8H/IV Metronidazole 500 100 ml @ 100 mls/hr 06/25/16 1000 mg/Prmx Q8@02,10,18/IV 06/26/16 1036 Assessment & Plan 71 yo F on broad spectrum antibiotics for the treatment of an abdominal wall abscess. Current cultures growing two separate strains of gram (-) bacilli. Antibiotics per ID. Vancomycin * This drug level is: Therapeutic. * Given patient's age, morbid obesity, and that the level was drawn one dose prior to true steady state, I think it would be safe at this point to back dosing to q12 to avoid any accumulation. This dosing interval should still maintain trough >/=15 mcg/mL. * Change to 1100 mg IV every 12 hours. * Goal trough level estimate: between 15 - 20 mcg/mL. * A trough level has been ordered for: 06/28/16 @1130 prior to the 1200 dose. Pharmacy will continue to follow and will adjust dose/frequency as necessary. Thank you
--- NOTE | 2016-06-26 14:11 | Surgery Progress Note ---
Surgery Progress Note Date of Service Jun 26, 2016. Subjective + feeling well pt is stable, passed a small amount stool, no N/V, no fever, some drainage from the wound. the wound culture G - bacilli. Objective Vital Signs: Date Time Temp Pulse Resp B/P Pulse Ox O2 Delivery O2 Flow Rate FiO2 06/26/16 06:54 36.6 54 17 106/63 97 Room Air 06/25/16 23:37 36.6 88 19 104/68 96 Room Air 06/25/16 23:30 Room Air 06/25/16 20:56 74 117/78 06/25/16 16:10 Room Air 06/25/16 15:35 36.3 61 16 151/81 98 Room Air General Appearance: WD/WN Head: normocephalic Neck: supple, no JVD Respiratory/Chest: chest non-tender, lungs clear Cardiovascular: regular rate, rhythm, no edema, no JVD Abdomen: normal bowel sounds, non tender, non distended, soft, no organomegaly Incision(s): clean, drainage Extremities: normal range of motion, non-tender, normal inspection Laboratory Results: Results Past 24 Hours Test 06/26/16 07:05 06/26/16 11:27 Range/Units Creatinine 0.66 0.60-1.20 mg/dl Est Creatinine Clear Calc Drug Dose 76.9 ml/min Estimated GFR () 103.7 Estimated GFR (Non- 89.5 Vancomycin Level Trough 17.7 SEE COMMENT mcg/ml Assessment & Plan IMP: S/P I/D abdominal wall abscess pt is doing better, D/C NG tube infection disease Doctor consult co-manage resume home meds wound culture is pending I update information about OR finding and the procedure pt had to pt and her son and daughter, they understood, I answered all questions, will F/U continue treatment I update information to pt and her family may do Upper GI study to R/O bowel fistula tomorrow, they agree with the plan, Will F/U. regular diet IMP: S/P I/D abdominal wall abscess pt is doing better, D/C NG tube infection disease Doctor consult co-manage resume home meds wound culture is pending I update information about OR finding and the procedure pt had to pt and her son and daughter, they understood, I answered all questions, will F/U
[2016-06-26 14:55] VITALS: BP 120/67; PULSE 67; TEMP 36.5; O2SAT 99
[2016-06-26] MEDS: CEFEPIME IV 2,000 MG in DEXTROSE 5% 100ML 100 ML IV SCH ×2 (15:21→22:12)
--- NOTE | 2016-06-26 19:36 | Hospitalist Progress Note ---
Hospitalist Progress Note Date of Service Jun 26, 2016. Subjective Pt evaluation today including: conversation w/ patient, conversation w/ family , physical exam, chart review, lab review Patient without complaints awaiting next study Medications Medications (Trade) Dose Ordered Sig/Devang Route Start Time Stop Time Status Last Admin Dose Admin Atenolol (Tenormin Tab) 25 mg BID PO 06/25/16 21:00 07/25/16 20:59 06/26/16 08:55 25 MG Bupropion HCl (Wellbutrin-Sr Tab) 100 mg BID PO 06/25/16 21:00 07/25/16 20:59 06/26/16 08:55 100 MG Cetirizine HCl (zyrTEC TAB) 10 mg QAM PO 06/26/16 09:00 07/26/16 08:59 06/26/16 08:55 10 MG Tamsulosin HCl (Flomax Cap) 0.4 mg DAILY PO 06/26/16 09:00 07/26/16 08:59 06/26/16 08:55 0.4 MG Nizatidine (Axid) 300 mg BID PO 06/25/16 21:00 06/26/16 06:58 DC 06/25/16 21:33 300 MG Nizatidine 300 mg 300 mg BID PO 06/26/16 09:00 07/26/16 08:59 06/26/16 08:56 300 MG Cefepime HCl/ Dextrose (Maxipime IV/D5 100ml) 112.5 ml @ 200 mls/hr Q8H IV 06/26/16 14:00 07/06/16 13:59 06/26/16 15:21 200 MLS/HR Objective Vital Signs Date Time Temp Pulse Resp B/P Pulse Ox O2 Delivery O2 Flow Rate FiO2 06/26/16 14:55 36.5 67 18 120/67 99 Room Air 06/26/16 06:54 36.6 54 17 106/63 97 Room Air 06/25/16 23:37 36.6 88 19 104/68 96 Room Air 06/25/16 23:30 Room Air 06/25/16 20:56 74 117/78 Physical Exam General Appearance: no apparent distress Eyes: normal inspection ENT: normal ENT inspection Respiratory/Chest: chest non-tender, lungs clear Cardiovascular: regular rate, rhythm Abdomen: normal bowel sounds Extremities: normal range of motion Laboratory Results Last 24 Hours Test 06/26/16 07:05 06/26/16 11:27 Creatinine 0.66 mg/dl Est Creatinine Clear Calc Drug Dose 76.9 ml/min Estimated GFR () 103.7 Estimated GFR (Non- 89.5 Vancomycin Level Trough 17.7 mcg/ml Assessment and Plan (1) Abdominal wall abscess Assessment & Plan: Infectious disease and surgery input appreciated. Continue IV antibiotics awaiting culture results. Upper Gi possibly tomorrow. (2) Anemia Assessment & Plan: will check hemoglobin in the am. If stable would recommend dvt prop with either sq heparin or lovenox. (3) DVT prophylaxis Assessment & Plan: If hemoglobin is stable recommend adding heparin sq or lovenox
[2016-06-26 20:45] VITALS: BP 110/72; PULSE 72
[2016-06-26] MEDS ORDERED: DOCUSATE SODIUM 100 MG CAP PO ONE (21:15)
[2016-06-26 23:27] VITALS: BP 96/61; PULSE 62; TEMP 36.7; O2SAT 97
[2016-06-27] MEDS: METRONIDAZOLE 500MG / NSS IV SCH ×2 (02:12→09:34)
[2016-06-27] MEDS: HYDROmorphone INJ 1 MG/ML SYR IV PRN ×4 (03:38→19:47)
[2016-06-27] MEDS: CEFEPIME IV 2,000 MG in DEXTROSE 5% 100ML 100 ML IV SCH ×2 (05:37→15:18)
[2016-06-27] MEDS: LEVOTHYROXINE 125 MCG TAB PO SCH (05:37)
[2016-06-27 06:45] LABS: BASO % 0.2 %; BASO ABS # 0.02 K/uL (0-0.2); HEMATOCRIT 27.8 % (37-47); IG% 0.4 %; LYMPH % 15.2 %; LYMPH ABS # 1.25 K/uL (1.2-3.4); MEAN CELL VOLUME 82.7 fL (80-100); MEAN CORPUSCULAR HEMOGLOBIN 24.4 pg (25-34); MEAN CORPUSCULAR HGB CONC 29.5 g/dl (32-36); MEAN PLATELET VOLUME 9.3 fL (7.4-10.4); MONO % 13.6 %; NEUT % 67.6 %; PLATELET COUNT 424 K/uL (130-400); RED BLOOD COUNT 3.36 M/uL (4.2-5.4); WHITE BLOOD COUNT 8.22 K/uL (4.8-10.8)
[2016-06-27 07:12] LABS: ANISOCYTOSIS PRESENT; COMPLETE YES; HYPOCHROMIA PRESENT
[2016-06-27 07:59] VITALS: BP 122/65; PULSE 60; TEMP 36.8; O2SAT 97
[2016-06-27 08:24] LABS: BUN/CREATININE RATIO 10.3 (10-20); CREATININE 0.72 mg/dl (0.60-1.20); POTASSIUM 4.3 mmol/L (3.5-5.1)
[2016-06-27] MEDS: CETIRIZINE HCL 10 MG TAB PO SCH (08:36)
[2016-06-27] MEDS: TAMSULOSIN HCL 0.4 MG CAP PO SCH (08:36)
[2016-06-27] MEDS: LACTOBACILLUS ACIDOPHILUS (FLORANEX) TAB PO SCH ×3 (08:36→17:24)
[2016-06-27] MEDS: BuPROPion SR 100 MG TABCR PO SCH ×2 (08:36→21:33)
[2016-06-27] MEDS: DOCUSATE SODIUM 100 MG CAP PO SCH ×2 (08:36→21:33)
[2016-06-27] MEDS: NIZATIDINE PO SCH ×2 (08:37→21:36)
[2016-06-27 08:55] LABS: CALCIUM 9.7 mg/dl (8.5-10.1)
--- NOTE | 2016-06-27 09:08 | Hospitalist Progress Note ---
Hospitalist Progress Note Date of Service Jun 27, 2016. Subjective Pt evaluation today including: conversation w/ patient, conversation w/ family , physical exam, chart review, lab review Pain: No pain PO Intake: Patient tolerating breakfast with no problems All Other Systems: Reviewed and Negative Objective Vital Signs Date Time Temp Pulse Resp B/P Pulse Ox O2 Delivery O2 Flow Rate FiO2 06/27/16 07:59 36.8 60 16 122/65 97 Room Air 06/27/16 07:20 Room Air 06/27/16 00:52 Room Air 06/26/16 23:27 36.7 62 16 96/61 97 Room Air 06/26/16 20:45 72 110/72 06/26/16 16:20 Room Air 06/26/16 14:55 36.5 67 18 120/67 99 Room Air Physical Exam General Appearance: no apparent distress ENT: hearing grossly normal Respiratory/Chest: lungs clear Cardiovascular: regular rate, rhythm Abdomen: normal bowel sounds Neurologic/Psychiatric: normal mood/affect Laboratory Results Last 24 Hours Test 06/26/16 11:27 06/27/16 06:24 Vancomycin Level Trough 17.7 mcg/ml White Blood Count 8.22 K/uL Red Blood Count 3.36 M/uL Hemoglobin 8.2 g/dL Hematocrit 27.8 % Mean Corpuscular Volume 82.7 fL Mean Corpuscular Hemoglobin 24.4 pg Mean Corpuscular Hemoglobin Concent 29.5 g/dl Platelet Count 424 K/uL Mean Platelet Volume 9.3 fL Neutrophils (%) (Auto) 67.6 % Lymphocytes (%) (Auto) 15.2 % Monocytes (%) (Auto) 13.6 % Eosinophils (%) (Auto) 3.0 % Basophils (%) (Auto) 0.2 % Neutrophils # (Auto) 5.55 K/uL Lymphocytes # (Auto) 1.25 K/uL Monocytes # (Auto) 1.12 K/uL Eosinophils # (Auto) 0.25 K/uL Basophils # (Auto) 0.02 K/uL RDW Standard Deviation 52.0 fL RDW Coefficient of Variation 17.0 % Immature Granulocyte % (Auto) 0.4 % Immature Granulocyte # (Auto) 0.03 K/uL Hypochromasia PRESENT Anisocytosis PRESENT Sodium Level 141 mmol/L Potassium Level 4.3 mmol/L Chloride Level 109 mmol/L Carbon Dioxide Level 26 mmol/L Anion Gap 6.0 mmol/L Blood Urea Nitrogen 7 mg/dl Creatinine 0.72 mg/dl Est Creatinine Clear Calc Drug Dose 70.4 ml/min Estimated GFR () 98.3 Estimated GFR (Non- 84.9 BUN/Creatinine Ratio 10.3 Random Glucose 103 mg/dl Calcium Level 9.7 mg/dl Diagnostic Results Last Resulted CBC 06/27/16 06:24 Red Blood Count 3.36, Mean Corpuscular Volume 82.7, Mean Corpuscular Hemoglobin 24.4, Mean Corpuscular Hemoglobin Concent 29.5, Mean Platelet Volume 9.3, Neutrophils (%) (Auto) 67.6, Lymphocytes (%) (Auto) 15.2, Monocytes (%) (Auto) 13.6, Eosinophils (%) (Auto) 3.0, Basophils (%) (Auto) 0.2, Neutrophils # (Auto ) 5.55, Lymphocytes # (Auto) 1.25, Monocytes # (Auto) 1.12, Eosinophils # (Auto ) 0.25, Basophils # (Auto) 0.02 Last Resulted BMP 06/27/16 06:24 Medications (Trade) Dose Ordered Sig/Devang Route Start Time Stop Time Status Last Admin Dose Admin Cetirizine HCl (zyrTEC TAB) 10 mg QAM PO 06/26/16 09:00 07/26/16 08:59 06/27/16 08:36 10 MG Tamsulosin HCl (Flomax Cap) 0.4 mg DAILY PO 06/26/16 09:00 07/26/16 08:59 06/27/16 08:36 0.4 MG Nizatidine 300 mg 300 mg BID PO 06/26/16 09:00 07/26/16 08:59 06/27/16 08:37 300 MG Cefepime HCl 2000 mg/Dextrose 112.5 ml @ 200 mls/hr Q8H IV 06/26/16 14:00 07/06/16 13:59 06/27/16 05:37 200 MLS/HR Vancomycin HCl/ Sodium Chloride (Vancomycin Inj/ Nss 250ml) 272 ml @ 125 mls/hr Q12H IV 06/27/16 00:00 07/04/16 23:59 06/26/16 23:49 125 MLS/HR Docusate Sodium (coLACE CAP) 100 mg NOW ONCE PO 06/26/16 21:15 06/26/16 21:16 DC 06/26/16 21:52 100 MG Docusate Sodium (coLACE CAP) 100 mg BID PO 06/27/16 09:00 07/27/16 08:59 06/27/16 08:36 100 MG Assessment and Plan (1) Abdominal wall abscess Assessment & Plan: Clinically stable and improving on Vanco, Cefepime, and flagyl May be able to narrow coverage based up culture results. (2) Anemia Assessment & Plan: can work up as outpatient. Continue SCDs and will place pt eval and tx. Would not give blood thinners in the context of current anemia. Patient agrees to ambulation with scd's. (3) DVT prophylaxis Assessment & Plan: scd's see discussion above.
[2016-06-27] MEDS ORDERED: NURSING VERBAL MED ORDER ONE (09:45)
[2016-06-27] MEDS ORDERED: NON-FORMULARY PATIENT'S OWN MED SC SCH (10:30)
--- NOTE | 2016-06-27 10:31 | Surgery Progress Note ---
Surgery Progress Note Date of Service Jun 27, 2016. Subjective Post OP Day: 2 + feeling well pt is doing better, she tolerated diet, no N/V, no fever, changed 2 times dressing over night, I changed the dressing today, the wound is some redness, some drainage from the wound, possible small bowel fistula, Objective Vital Signs: Date Time Temp Pulse Resp B/P Pulse Ox O2 Delivery O2 Flow Rate FiO2 06/27/16 07:59 36.8 60 16 122/65 97 Room Air 06/27/16 07:20 Room Air 06/27/16 00:52 Room Air 06/26/16 23:27 36.7 62 16 96/61 97 Room Air 06/26/16 20:45 72 110/72 06/26/16 16:20 Room Air 06/26/16 14:55 36.5 67 18 120/67 99 Room Air General Appearance: WD/WN Head: normocephalic Neck: supple, no JVD Respiratory/Chest: chest non-tender, lungs clear Cardiovascular: regular rate, rhythm, no edema, no JVD Abdomen: normal bowel sounds, non tender Incision(s): drainage Extremities: normal range of motion, non-tender, normal inspection Laboratory Results: Results Past 24 Hours Test 06/26/16 11:27 06/27/16 06:24 Range/Units Vancomycin Level Trough 17.7 SEE COMMENT mcg/ml White Blood Count 8.22 4.8-10.8 K/uL Red Blood Count 3.36 4.2-5.4 M/uL Hemoglobin 8.2 12.0-16.0 g/dL Hematocrit 27.8 37-47 % Mean Corpuscular Volume 82.7 80-100 fL Mean Corpuscular Hemoglobin 24.4 25-34 pg Mean Corpuscular Hemoglobin Concent 29.5 32-36 g/dl Platelet Count 424 130-400 K/uL Mean Platelet Volume 9.3 7.4-10.4 fL Neutrophils (%) (Auto) 67.6 % Lymphocytes (%) (Auto) 15.2 % Monocytes (%) (Auto) 13.6 % Eosinophils (%) (Auto) 3.0 % Basophils (%) (Auto) 0.2 % Neutrophils # (Auto) 5.55 1.4-6.5 K/uL Lymphocytes # (Auto) 1.25 1.2-3.4 K/uL Monocytes # (Auto) 1.12 0.11-0.59 K/uL Eosinophils # (Auto) 0.25 0-0.5 K/uL Basophils # (Auto) 0.02 0-0.2 K/uL RDW Standard Deviation 52.0 36.4-46.3 fL RDW Coefficient of Variation 17.0 11.5-14.5 % Immature Granulocyte % (Auto) 0.4 % Immature Granulocyte # (Auto) 0.03 0.00-0.02 K/uL Hypochromasia PRESENT Anisocytosis PRESENT Sodium Level 141 136-145 mmol/L Potassium Level 4.3 3.5-5.1 mmol/L Chloride Level 109 98-107 mmol/L Carbon Dioxide Level 26 21-32 mmol/L Anion Gap 6.0 3-11 mmol/L Blood Urea Nitrogen 7 7-18 mg/dl Creatinine 0.72 0.60-1.20 mg/dl Est Creatinine Clear Calc Drug Dose 70.4 ml/min Estimated GFR () 98.3 Estimated GFR (Non- 84.9 BUN/Creatinine Ratio 10.3 10-20 Random Glucose 103 70-99 mg/dl Calcium Level 9.7 8.5-10.1 mg/dl Assessment & Plan IMP: S/P I/D abdominal wall abscess pt is doing better, D/C NG tube infection disease Doctor consult co-manage resume home meds wound culture is pending I update information about OR finding and the procedure pt had to pt and her son and daughter, they understood, I answered all questions, will F/U continue treatment I update information to pt and her family may do Upper GI study to R/O bowel fistula tomorrow, they agree with the plan, Will F/U. I recommend to do GI study to R/O small bowel fistula, D/W benefits, risks and alternatives of the study, pt and her understood, they agree with the plan, H/H is low 8.2, asymptomatic , pt had anemia history in the past, hematology consult, PT consult will F/U IMP: S/P I/D abdominal wall abscess pt is doing better, D/C NG tube infection disease Doctor consult co-manage resume home meds wound culture is pending I update information about OR finding and the procedure pt had to pt and her son and daughter, they understood, I answered all questions, will F/U continue treatment I update information to pt and her family may do Upper GI study to R/O bowel fistula tomorrow, they agree with the plan, Will F/U.
--- NOTE | 2016-06-27 10:48 | Surgery Progress Note ---
Surgery Progress Note Date of Service Jun 27, 2016. Subjective Post OP Day: 3 + diet (tolerating regular diet), + feeling well, + flatus, + pain controlled, No SOB, No bowel movement, No chest pain, No complaints, No nausea, No vomiting Objective Vital Signs: Date Time Temp Pulse Resp B/P Pulse Ox O2 Delivery O2 Flow Rate FiO2 06/27/16 07:59 36.8 60 16 122/65 97 Room Air 06/27/16 07:20 Room Air 06/27/16 00:52 Room Air 06/26/16 23:27 36.7 62 16 96/61 97 Room Air 06/26/16 20:45 72 110/72 06/26/16 16:20 Room Air 06/26/16 14:55 36.5 67 18 120/67 99 Room Air General Appearance: WD/WN, no apparent distress Head: normocephalic, atraumatic Abdomen: non tender, non distended, soft, + pertinent finding (Dressing with serous drainage present) Laboratory Results: Results Past 24 Hours Test 06/26/16 11:27 06/27/16 06:24 Range/Units Vancomycin Level Trough 17.7 SEE COMMENT mcg/ml White Blood Count 8.22 4.8-10.8 K/uL Red Blood Count 3.36 4.2-5.4 M/uL Hemoglobin 8.2 12.0-16.0 g/dL Hematocrit 27.8 37-47 % Mean Corpuscular Volume 82.7 80-100 fL Mean Corpuscular Hemoglobin 24.4 25-34 pg Mean Corpuscular Hemoglobin Concent 29.5 32-36 g/dl Platelet Count 424 130-400 K/uL Mean Platelet Volume 9.3 7.4-10.4 fL Neutrophils (%) (Auto) 67.6 % Lymphocytes (%) (Auto) 15.2 % Monocytes (%) (Auto) 13.6 % Eosinophils (%) (Auto) 3.0 % Basophils (%) (Auto) 0.2 % Neutrophils # (Auto) 5.55 1.4-6.5 K/uL Lymphocytes # (Auto) 1.25 1.2-3.4 K/uL Monocytes # (Auto) 1.12 0.11-0.59 K/uL Eosinophils # (Auto) 0.25 0-0.5 K/uL Basophils # (Auto) 0.02 0-0.2 K/uL RDW Standard Deviation 52.0 36.4-46.3 fL RDW Coefficient of Variation 17.0 11.5-14.5 % Immature Granulocyte % (Auto) 0.4 % Immature Granulocyte # (Auto) 0.03 0.00-0.02 K/uL Hypochromasia PRESENT Anisocytosis PRESENT Sodium Level 141 136-145 mmol/L Potassium Level 4.3 3.5-5.1 mmol/L Chloride Level 109 98-107 mmol/L Carbon Dioxide Level 26 21-32 mmol/L Anion Gap 6.0 3-11 mmol/L Blood Urea Nitrogen 7 7-18 mg/dl Creatinine 0.72 0.60-1.20 mg/dl Est Creatinine Clear Calc Drug Dose 70.4 ml/min Estimated GFR () 98.3 Estimated GFR (Non- 84.9 BUN/Creatinine Ratio 10.3 10-20 Random Glucose 103 70-99 mg/dl Calcium Level 9.7 8.5-10.1 mg/dl Assessment & Plan POD # 3 s/p I&D abdominal wall abscess Possible small bowel fistula? - no leukocytosis - vitals stable, afebrile - abdominal pain minimal and controlled Plan: continue regular diet as tolerated Continue IV antibiotics continue dressing changes prn Small bowel series to evaluate for small bowel fistula will continue to monitor Dr. Fragoso has seen and examined patient, agrees with assessment and plan.
[2016-06-27] MEDS ORDERED: VANCOMYCIN TROUGH SCH (11:30)
[2016-06-27] MEDS: D5W AND 1/2NSS + 20MEQ KCL 1,000 ML IV SCH ×2 (11:35→23:32)
[2016-06-27] MEDS: VANCOMYCIN INJ 1,100 MG in SODIUM CHLORIDE 0.9% 250ML 250 ML IV SCH ×2 (11:35→23:31)
[2016-06-27 15:45] VITALS: BP 133/78; PULSE 65; TEMP 36.3; O2SAT 95
--- NOTE | 2016-06-27 16:22 | Oncology Consultation ---
Oncology/Heme Consultation Date of Consultation: Jun 27, 2016. Attending Physician: Cecy Fragoso MD Reason for Consultation: Anemia History of Present Illness Patient was admitted with signs and symptoms of right flank pain and was found to have an abdominal wall abscess. Surgery and drainage occurred 3 days ago. We' re asked to comment about her normochromic normocytic anemia. Hemoglobin today is 8.2. The rest of her hemogram is acceptable.. She is status post gastric bypass surgery in 2007. 2013 she reviews with me that she had a perforated gastric ulceration. She states that after gastric bypass there was a need for iron infusions but apparently has not had any iron either parenterally or orally for quite some time. She is not resting comfortably. She denies any fever or chills. She denies any overt bleeding. Past Medical/Surgical History Medical Problems: (1) Abdominal wall abscess Status: Acute (2) Depression Status: Chronic (3) Fever Status: Acute (4) GERD (gastroesophageal reflux disease) Status: Chronic (5) HTN (hypertension) Status: Chronic (6) Irregular heart beat Status: Chronic (7) Lumbar degenerative disc disease Status: Acute (8) Obesity Status: Chronic (9) Osteoarthritis Status: Chronic (10) Rosacea Status: Chronic (11) Spinal stenosis Status: Chronic Surgical Problems: (1) H/O gastric bypass Status: Chronic Social History Smoking Status: Former Smoker Marital Status: Housing Status: lives with family Occupation Status: retired Allergies Coded Allergies: Dust (Verified Allergy, Unknown, HAY FEVER, 06/24/16) Latex1 -Allergic Contact Dermititis (Verified Allergy, Unknown, contact dermatitis, 06/24/16) POLLEN (Verified Allergy, Unknown, HAY FEVER, 06/24/16) Penicillins (Verified Allergy, Unknown, RASH, 06/24/16) Shellfish (Verified Allergy, Unknown, 'tested positive during allergy testing', 06/24/16) Tomato (Verified Allergy, Unknown, tested positive, no rxn, 06/24/16) Eggs or Egg-derived Products (Verified Adverse Reaction, Unknown, 'tested positive during allergy testing', 06/24/16) Sulfa Antibiotics (Verified Adverse Reaction, Unknown, flu symptoms, ) Uncoded Allergies: SEAFOOD (Allergy, Unknown, TESTED POSTIVE during allergy testing, 01/03/15) SMOKE (Allergy, Unknown, CONGESTION, 01/03/15) Home Medications Scheduled Atenolol (Tenormin), 25 MG PO BID Bupropion (Wellbutrin Sr), 1 TAB PO BID Cetirizine Hcl (Zyrtec), 10 MG PO QAM Nfhnaoebjcn-Qyhoavpjgfa-Hae C- (Glucosamine Chondroitin 1), 1 CAP PO QAM Levothyroxine Sodium (Synthroid), 125 MCG PO QAM Multiple Vitamins W/ Minerals (Multi For Her), 1 CAP PO QAM Multiple Vitamins W/ Minerals (Vision Formula/Lutein), 1 TAB PO QAM Nizatidine (Nizatidine), 1 CAP PO BID Tamsulosin HCl (Tamsulosin HCl), 1 CAP PO DAILY Scheduled PRN Hydrocodone/Acetaminophen 5MG/325MG ([place] 5MG/325MG), 1-2 TAB PO Q4H PRN for Pain Melatonin (Melatonin), 10 MG PO HS PRN for Sleep Current Inpatient Medications Current Inpatient Medications Medications (Trade) Dose Ordered Sig/Devang Route Start Time Stop Time Status Last Admin Dose Admin Potassium Chloride/Dextrose/ Sod Cl (D5W And 1/2nss + 20meq KCl) 1,000 ml @ 80 mls/hr [id number] IV 06/24/16 20:30 07/24/16 20:29 06/27/16 11:35 80 MLS/HR Ondansetron HCl (Zofran Inj) 4 mg Q4H PRN IV 06/24/16 19:00 07/24/16 18:59 Hydromorphone HCl (Dilaudid Inj) 0.6 mg Q3H PRN IV 06/24/16 19:00 07/08/16 18:59 Hydromorphone HCl (Dilaudid Inj) 1 mg Q3H PRN IV 06/24/16 19:00 07/08/16 18:59 06/27/16 13:56 1 MG Lactobacillus Acidophilus (Floranex Tab) 4 tab TIDM PO 06/25/16 08:30 07/25/16 08:29 06/27/16 11:35 4 TAB Vancomycin HCl 1 ea 1 ea UD PRN N/A 06/25/16 06:45 07/05/16 06:44 Metronidazole/Prmx (Flagyl / Nss/ Premixed Nss) 100 ml @ 100 mls/hr Q8@02,10,18 IV 06/25/16 10:00 07/05/16 09:59 06/27/16 09:34 100 MLS/HR Atenolol (Tenormin Tab) 25 mg BID PO 06/25/16 21:00 07/25/16 20:59 06/27/16 08:36 25 MG Bupropion HCl (Wellbutrin-Sr Tab) 100 mg BID PO 06/25/16 21:00 07/25/16 20:59 06/27/16 08:36 100 MG Cetirizine HCl (zyrTEC TAB) 10 mg QAM PO 06/26/16 09:00 07/26/16 08:59 06/27/16 08:36 10 MG Levothyroxine Sodium (Synthroid Tab) 125 mcg DAILYBB PO 06/25/16 15:15 07/25/16 15:14 06/27/16 05:37 125 MCG Tamsulosin HCl (Flomax Cap) 0.4 mg DAILY PO 06/26/16 09:00 07/26/16 08:59 06/27/16 08:36 0.4 MG Nizatidine 300 mg 300 mg BID PO 06/26/16 09:00 07/26/16 08:59 06/27/16 08:37 300 MG Cefepime HCl 2000 mg/Dextrose 112.5 ml @ 200 mls/hr Q8H IV 06/26/16 14:00 07/06/16 13:59 06/27/16 15:18 200 MLS/HR Vancomycin HCl/ Sodium Chloride (Vancomycin Inj/ Nss 250ml) 272 ml @ 125 mls/hr Q12H IV 06/27/16 00:00 07/04/16 23:59 06/27/16 11:35 125 MLS/HR Docusate Sodium (coLACE CAP) 100 mg BID PO 06/27/16 09:00 07/27/16 08:59 06/27/16 08:36 100 MG Non-Formulary Medication (Non-Formulary Patient'S Own Med) 1 ea We@0900 SC 07/03/16 09:00 07/27/16 10:29 Review of Systems Constitutional: Negative for weight loss, night sweats, or fever Eyes: Negative for event change of vision ENT: Negative for epistaxis, nasal discharge, sore throat, or deafness Cardiovascular: Negative for chest pain, palpitations, dizziness, diaphoresis Respiratory: Negative for new shortness of breath,hemoptysis, or purulent cough Gastrointestinal: Negative for diarrhea, hematemesis, melena, nausea, vomiting , or dyspepsia Integumentary (skin): Negative for rash or jaundice discoloration Genitourinary: Negative for urinary frequency, hematuria, or dysuria Neurological: Negative for weakness, seizure activity, headache, or dizziness Lymphatic/Hematologic: Negative for petechiae, bleeding or new adenopathy Musculoskeletal: Negative for new joint or back pain Allergic/Immunologic: Negative for unusual rash or pruritis. Physical Exam Date Time Temp Pulse Resp B/P Pulse Ox O2 Delivery O2 Flow Rate FiO2 06/27/16 07:59 36.8 60 16 122/65 97 Room Air 06/27/16 07:20 Room Air 06/27/16 00:52 Room Air 06/26/16 23:27 36.7 62 16 96/61 97 Room Air 06/26/16 20:45 72 110/72 06/26/16 16:20 Room Air Constitutional: vitals are stable. Pleasant alert female Eyes: Eyes are MADELINE EOMI without conjuctival erythema or icterus. ENT: External examination was negative for masses. Neck: Negative for masses or palpable thyromegaly Respiratory: Lung sounds were generally clear bilaterally Cardiovascular: Heart was RRR without significant murmur, gallops aoe rubs Gastrointestinal: No palpable hepatic or splenomegaly. The abdomen was soft with normal bowel sounds. The right flank was heavily bandaged. Incisions from prior surgeries were midline and well-healed Lymphatic system: there was no palpable peripheral lymphadenopathy Musculoskeletal System: The musculoskeletal system seemed concordant with age. Skin: The skin was negative for jaundice. Neurologic exam: The exam was negative for any focal findings. Deep tendon reflexes were equal and symmetrical. Psychiatric exam: Was essentially negative with normal mood and effect. Breast exam: Was not done Extremities: Negative for edema erythema Laboratory Results Last 24 Hours Test 06/27/16 06:24 White Blood Count 8.22 K/uL Red Blood Count 3.36 M/uL Hemoglobin 8.2 g/dL Hematocrit 27.8 % Mean Corpuscular Volume 82.7 fL Mean Corpuscular Hemoglobin 24.4 pg Mean Corpuscular Hemoglobin Concent 29.5 g/dl Platelet Count 424 K/uL Mean Platelet Volume 9.3 fL Neutrophils (%) (Auto) 67.6 % Lymphocytes (%) (Auto) 15.2 % Monocytes (%) (Auto) 13.6 % Eosinophils (%) (Auto) 3.0 % Basophils (%) (Auto) 0.2 % Neutrophils # (Auto) 5.55 K/uL Lymphocytes # (Auto) 1.25 K/uL Monocytes # (Auto) 1.12 K/uL Eosinophils # (Auto) 0.25 K/uL Basophils # (Auto) 0.02 K/uL RDW Standard Deviation 52.0 fL RDW Coefficient of Variation 17.0 % Immature Granulocyte % (Auto) 0.4 % Immature Granulocyte # (Auto) 0.03 K/uL Hypochromasia PRESENT Anisocytosis PRESENT Sodium Level 141 mmol/L Potassium Level 4.3 mmol/L Chloride Level 109 mmol/L Carbon Dioxide Level 26 mmol/L Anion Gap 6.0 mmol/L Blood Urea Nitrogen 7 mg/dl Creatinine 0.72 mg/dl Est Creatinine Clear Calc Drug Dose 70.4 ml/min Estimated GFR () 98.3 Estimated GFR (Non- 84.9 BUN/Creatinine Ratio 10.3 Random Glucose 103 mg/dl Calcium Level 9.7 mg/dl Assessment & Plan Normochromic normocytic anemia. Presumably this is mostly on the basis of chronic disease. She is now on antibiotics. For now would just transfuse when necessary. We will obtain iron studies. She may be followed as outpatient then watching her iron stores in particular. I have suggested that upon discharge and she take oral iron such as liquid iron. She states she has done this before. In spite of the gastric bypass occasionally some iron is gastrointestinal he absorbed.
--- NOTE | 2016-06-27 16:27 | Infectious Disease Progress Nt ---
Progress Note Date of Service Jun 27, 2016. Subjective Pt evaluation today including: conversation w/ patient, physical exam, chart review, lab review, review of studies, review of inpatient medication list Patient is feeling slightly improved today. Surgical culture still peneing. Klebsiella and GNB growing currently. Patient continues on IV Vancomycin, Cefepime, and Flagyl. She is tolerating these antibiotics well. She states that her abdominal pain is well controlled today. All Other Systems: Reviewed and Negative Medications Current Inpatient Medications Medications (Trade) Dose Ordered Sig/Devang Route Start Time Stop Time Status Last Admin Dose Admin Potassium Chloride/Dextrose/ Sod Cl (D5W And 1/2nss + 20meq KCl) 1,000 ml @ 80 mls/hr [id number] IV 06/24/16 20:30 07/24/16 20:29 06/27/16 11:35 80 MLS/HR Ondansetron HCl (Zofran Inj) 4 mg Q4H PRN IV 06/24/16 19:00 07/24/16 18:59 Hydromorphone HCl (Dilaudid Inj) 0.6 mg Q3H PRN IV 06/24/16 19:00 07/08/16 18:59 Hydromorphone HCl (Dilaudid Inj) 1 mg Q3H PRN IV 06/24/16 19:00 07/08/16 18:59 06/27/16 13:56 1 MG Lactobacillus Acidophilus (Floranex Tab) 4 tab TIDM PO 06/25/16 08:30 07/25/16 08:29 06/27/16 11:35 4 TAB Vancomycin HCl 1 ea 1 ea UD PRN N/A 06/25/16 06:45 07/05/16 06:44 Metronidazole/Prmx (Flagyl / Nss/ Premixed Nss) 100 ml @ 100 mls/hr Q8@,,18 IV 06/25/16 10:00 07/05/16 09:59 06/27/16 09:34 100 MLS/HR Atenolol (Tenormin Tab) 25 mg BID PO 06/25/16 21:00 07/25/16 20:59 06/27/16 08:36 25 MG Bupropion HCl (Wellbutrin-Sr Tab) 100 mg BID PO 06/25/16 21:00 07/25/16 20:59 06/27/16 08:36 100 MG Cetirizine HCl (zyrTEC TAB) 10 mg QAM PO 06/26/16 09:00 07/26/16 08:59 06/27/16 08:36 10 MG Levothyroxine Sodium (Synthroid Tab) 125 mcg DAILYBB PO 06/25/16 15:15 07/25/16 15:14 06/27/16 05:37 125 MCG Tamsulosin HCl (Flomax Cap) 0.4 mg DAILY PO 06/26/16 09:00 07/26/16 08:59 06/27/16 08:36 0.4 MG Nizatidine 300 mg 300 mg BID PO 06/26/16 09:00 07/26/16 08:59 06/27/16 08:37 300 MG Cefepime HCl 2000 mg/Dextrose 112.5 ml @ 200 mls/hr Q8H IV 06/26/16 14:00 07/06/16 13:59 06/27/16 15:18 200 MLS/HR Vancomycin HCl/ Sodium Chloride (Vancomycin Inj/ Nss 250ml) 272 ml @ 125 mls/hr Q12H IV 06/27/16 00:00 07/04/16 23:59 06/27/16 11:35 125 MLS/HR Docusate Sodium (coLACE CAP) 100 mg BID PO 06/27/16 09:00 07/27/16 08:59 06/27/16 08:36 100 MG Non-Formulary Medication (Non-Formulary Patient'S Own Med) 1 ea We@0900 SC 07/03/16 09:00 07/27/16 10:29 Objective Vital Signs Date Time Temp Pulse Resp B/P Pulse Ox O2 Delivery O2 Flow Rate FiO2 06/27/16 07:59 36.8 60 16 122/65 97 Room Air 06/27/16 07:20 Room Air 06/27/16 00:52 Room Air 06/26/16 23:27 36.7 62 16 96/61 97 Room Air 06/26/16 20:45 72 110/72 06/26/16 16:20 Room Air Physical Exam General Appearance: no apparent distress, + obese Eyes: normal inspection, sclerae normal ENT: hearing grossly normal Neck: supple, trachea midline Respiratory/Chest: no respiratory distress, no accessory muscle use Cardiovascular: regular rate, rhythm Abdomen: + pertinent finding (bandage in place today. ) Neurologic/Psychiatric: alert, normal mood/affect Skin: normal color, warm/dry, no rash, + pertinent finding (large open wound of the upper right abdomen. Some serous drainage noted on bandages.) Laboratory Results RUN DATE: 06/27/16 [facility] LAB PAGE 1 RUN TIME: 1431 Specimen Inquiry PATIENT: KRYSTA VALENTINO LOC: [facility] U # : [id number] AGE/SX: 71/F ROOM: [facility] REG : 06/24/[address]: Cecy Fragoso MD : 1945 BED: 1 DIS : STATUS: ADM IN TLOC: SPEC #: [id number] OLU: 06/24/16 STATUS: RES REQ #: [id number] RECD: 06/24/[address] [facility] [address]: Arie Hernandez M.D. SOURCE: ABSCESS ENTR: 06/24/[address] [facility] [address]: Danyell Austin M.D. [facility]: ABD ORDERED: AER/LIS CULTSMR Procedure Result Verified Site GRAM STAIN Final 06/25/16 RESULT MANY WBCs SEEN MODERATE GRAM NEGATIVE BACILLI MODERATE GRAM POSITIVE COCCI OR AER/LIS CULT Preliminary 06/27/16-1431 Organism 1 KLEBSIELLA OXYTOCA QUANITY FEW SENS SENSITIVITY TO FOLLOW +MIXWOUND PLUS LOW COUNTS OF PROBABLE INTESTINAL LOCO Organism 2 GRAM NEGATIVE BACILLI#2 QUANITY FEW SENS SENSITIVITY TO FOLLOW 1. KLEBSIELLA OXYTOCA Target Route Dose RX AB Cost M.I.C. IQ ------ ----- ------ -- ------ -------- - ------ TRIMET/SULFA S <=2/38 AMPICILLIN/SUL I 16/8 CEFAZOLIN R >16 CEFOTAXIME S <=2 CEFTRIAXONE S <=1 CEFEPIME S <=4 CEFUROXIME S <=4 IMIPENEM S <=1 GENTAMICIN S <=4 TOBRAMYCIN S <=4 AMIKACIN S <=16 CIPROFLOXACIN S <=1 LEVOFLOXACIN S <=2 ERTAPENEM S <=1 PIP/TAZO S <=16 S = SENSITIVE I = INTERMEDIATE R = RESISTANT Item Value Date Time Gram Stain - Final Resulted 06/24/16 1830 Abscess Abdomen Blood Culture - Preliminary Resulted 06/24/16 1716 Blood NO GROWTH TO DATE. Blood Culture - Preliminary Resulted 06/24/16 1710 Blood NO GROWTH TO DATE. Last 24 Hours Test 06/27/16 06:24 White Blood Count 8.22 K/uL Red Blood Count 3.36 M/uL Hemoglobin 8.2 g/dL Hematocrit 27.8 % Mean Corpuscular Volume 82.7 fL Mean Corpuscular Hemoglobin 24.4 pg Mean Corpuscular Hemoglobin Concent 29.5 g/dl Platelet Count 424 K/uL Mean Platelet Volume 9.3 fL Neutrophils (%) (Auto) 67.6 % Lymphocytes (%) (Auto) 15.2 % Monocytes (%) (Auto) 13.6 % Eosinophils (%) (Auto) 3.0 % Basophils (%) (Auto) 0.2 % Neutrophils # (Auto) 5.55 K/uL Lymphocytes # (Auto) 1.25 K/uL Monocytes # (Auto) 1.12 K/uL Eosinophils # (Auto) 0.25 K/uL Basophils # (Auto) 0.02 K/uL RDW Standard Deviation 52.0 fL RDW Coefficient of Variation 17.0 % Immature Granulocyte % (Auto) 0.4 % Immature Granulocyte # (Auto) 0.03 K/uL Hypochromasia PRESENT Anisocytosis PRESENT Sodium Level 141 mmol/L Potassium Level 4.3 mmol/L Chloride Level 109 mmol/L Carbon Dioxide Level 26 mmol/L Anion Gap 6.0 mmol/L Blood Urea Nitrogen 7 mg/dl Creatinine 0.72 mg/dl Est Creatinine Clear Calc Drug Dose 70.4 ml/min Estimated GFR () 98.3 Estimated GFR (Non- 84.9 BUN/Creatinine Ratio 10.3 Random Glucose 103 mg/dl Calcium Level 9.7 mg/dl Assessment and Plan (1) Abdominal wall abscess Status: Acute 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 Cultures growing Klebsiella oxytoca and another gram-negative bacilli pending identification. She is currently on IV Vancomycin, Cefepime, and Flagyl. Will continue IV Vancomycin pending final cultures but D/C Cefepime and Flagyl- transition to IV Ertapenem 1 g daily for ease of use to cover gram negative/anaerobic infection. We will continue to follow. PROVIDER ADDENDUM: Patient reviewed with Ms. Campuzano. Agree with above assessment.
[2016-06-27] MEDS ORDERED: ERTAPENEM IV 1 GM in SODIUM CHLOR 0.9% AD-VAN 50ML 50 ML IV SCH (17:00)
[2016-06-27 19:03] LABS: TOTAL IRON BINDING CAPACITY 223 mcg/dl (250-450)
[2016-06-27] MEDS: ONDANSETRON INJ 2 MG/ML 2 ML VIAL IV PRN (19:52)
[2016-06-27 21:30] VITALS: BP 95/59; PULSE 60
[2016-06-27 23:05] VITALS: BP 131/76; PULSE 63; TEMP 36.8; O2SAT 96
[2016-06-28] MEDS: ONDANSETRON INJ 2 MG/ML 2 ML VIAL IV PRN (05:32)
[2016-06-28] MEDS: HYDROmorphone INJ 1 MG/ML SYR IV PRN (05:33)
[2016-06-28] MEDS: LEVOTHYROXINE 125 MCG TAB PO SCH (05:35)
[2016-06-28 07:14] VITALS: BP 101/55; PULSE 64; TEMP 36.7; O2SAT 95
[2016-06-28 07:55] LABS: CREATININE 0.65 mg/dl (0.60-1.20)
[2016-06-28] MEDS: LACTOBACILLUS ACIDOPHILUS (FLORANEX) TAB PO SCH ×2 (08:04→12:34)
[2016-06-28] MEDS: CETIRIZINE HCL 10 MG TAB PO SCH (08:45)
[2016-06-28] MEDS: BuPROPion SR 100 MG TABCR PO SCH (08:45)
[2016-06-28] MEDS: NIZATIDINE PO SCH (08:45)
[2016-06-28] MEDS: DOCUSATE SODIUM 100 MG CAP PO SCH (08:45)
[2016-06-28] MEDS: TAMSULOSIN HCL 0.4 MG CAP PO SCH (08:45)
--- NOTE | 2016-06-28 10:08 | Hematology/Oncology Prog Note ---
Hematology/Onc Progress Note Date of Service Jun 28, 2016. Diagnoses Anemia Abdominal abscess History of gastric bypass Medications Medications Administered Medications (Trade) Dose Ordered Sig/Devang Route Start Time Stop Time Status Last Admin Dose Admin Fentanyl Citrate 50 mcg 50 mcg Q5M PRN IV 06/24/16 18:00 06/24/16 23:00 DC 06/24/16 19:10 25 MCG Potassium Chloride/Dextrose/ Sod Cl 1,000 ml @ 80 mls/hr [id number] IV 06/24/16 20:30 07/24/16 20:29 06/27/16 23:32 80 MLS/HR Metronidazole/Prmx (Flagyl / Nss/ Premixed Nss) 100 ml @ 100 mls/hr Q8H IV 06/25/16 02:00 06/25/16 06:25 DC 06/25/16 01:34 100 MLS/HR Ondansetron HCl (Zofran Inj) 4 mg Q4H PRN IV 06/24/16 19:00 07/24/16 18:59 06/28/16 05:32 4 MG Hydromorphone HCl (Dilaudid Inj) 1 mg Q3H PRN IV 06/24/16 19:00 07/08/16 18:59 06/28/16 05:33 1 MG Lactobacillus Acidophilus (Floranex Tab) 4 tab TIDM PO 06/25/16 08:30 07/25/16 08:29 06/27/16 17:24 4 TAB Lactobacillus Acidophilus 4 tab 4 tab 2224 ONCE PO 06/24/16 22:24 06/24/16 22:32 DC 06/24/16 22:58 4 TAB Vancomycin HCl 1100 mg/Sodium Chloride 272 ml @ 125 mls/hr Q10H IV 06/25/16 16:00 06/26/16 13:47 DC 06/26/16 13:03 125 MLS/HR Vancomycin HCl 1900 mg/Sodium Chloride 538 ml @ 200 mls/hr 0645 ONCE IV 06/25/16 06:45 06/25/16 09:26 DC 06/25/16 06:44 200 MLS/HR Metronidazole 500 mg/Prmx 100 ml @ 100 mls/hr Q8@,,18 IV 06/25/16 10:00 06/27/16 16:27 DC 06/27/16 09:34 100 MLS/HR Aztreonam/Dextrose (Azactam IV/D5 100ml) 110 ml @ 110 mls/hr Q8H IV 06/25/16 12:00 06/26/16 11:41 DC 06/26/16 04:20 110 MLS/HR Atenolol (Tenormin Tab) 25 mg BID PO 06/25/16 21:00 07/25/16 20:59 06/27/16 08:36 25 MG Bupropion HCl (Wellbutrin-Sr Tab) 100 mg BID PO 06/25/16 21:00 07/25/16 20:59 06/27/16 21:33 100 MG Cetirizine HCl (zyrTEC TAB) 10 mg QAM PO 06/26/16 09:00 07/26/16 08:59 06/27/16 08:36 10 MG Levothyroxine Sodium (Synthroid Tab) 125 mcg DAILYBB PO 06/25/16 15:15 07/25/16 15:14 06/27/16 05:37 125 MCG Tamsulosin HCl (Flomax Cap) 0.4 mg DAILY PO 06/26/16 09:00 07/26/16 08:59 06/27/16 08:36 0.4 MG Cetirizine HCl (zyrTEC TAB) 10 mg NOW ONCE PO 06/25/16 15:30 06/25/16 15:44 DC 06/25/16 16:54 10 MG Nizatidine (Axid) 300 mg BID PO 06/25/16 21:00 06/26/16 06:58 DC 06/25/16 21:33 300 MG Nizatidine 300 mg 300 mg BID PO 06/26/16 09:00 07/26/16 08:59 06/27/16 21:36 300 MG Cefepime HCl 2000 mg/Dextrose 112.5 ml @ 200 mls/hr Q8H IV 06/26/16 14:00 06/27/16 16:27 DC 06/27/16 15:18 200 MLS/HR Vancomycin HCl/ Sodium Chloride (Vancomycin Inj/ Nss 250ml) 272 ml @ 125 mls/hr Q12H IV 06/27/16 00:00 07/04/16 23:59 06/27/16 23:31 125 MLS/HR Docusate Sodium (coLACE CAP) 100 mg NOW ONCE PO 06/26/16 21:15 06/26/16 21:16 DC 06/26/16 21:52 100 MG Docusate Sodium (coLACE CAP) 100 mg BID PO 06/27/16 09:00 07/27/16 08:59 06/27/16 21:33 100 MG Non-Formulary Medication 1 ea 1 ea We@0900 SC 06/27/16 10:30 06/27/16 23:59 DC 06/27/16 16:42 1 EA Ertapenem/Sodium Chloride (Invanz Iv/Nss Ad-Van 50ml) 50 ml @ 120 mls/hr Q24H IV 06/27/16 17:00 07/07/16 16:59 06/27/16 17:24 120 MLS/HR Subjective She seems stable. Pain does not seem to be an issue. She denies any overt bleeding. Review of Systems: Constitutional: Negative for night sweats, or fever Eyes: Negative for event change of vision ENT: Negative for epistaxis, nasal discharge, sore throat, or deafness Cardiovascular: Negative for chest pain, palpitations, dizziness, diaphoresis Respiratory: Negative for new shortness of breath,hemoptysis, or purulent cough Gastrointestinal: Negative for diarrhea, hematemesis, melena, nausea, vomiting , or dyspepsia Integumentary (skin): Negative for rash or jaundice discoloration Genitourinary: Negative for urinary frequency, hematuria, or dysuria Neurological: Negative for weakness, seizure activity, headache, or dizziness Lymphatic/Hematologic: Negative for petechiae, bleeding or new adenopathy Musculoskeletal: Negative for new joint or back pain Allergic/Immunologic: Negative for unusual rash or pruritis. Vital Signs Vital Signs Past 12 Hours Date Time Temp Pulse Resp B/P Pulse Ox O2 Delivery O2 Flow Rate FiO2 06/28/16 07:39 Room Air 06/28/16 07:14 36.7 64 16 101/55 95 Room Air 06/27/16 23:05 36.8 63 16 131/76 96 Room Air Physical Exam Constitutional: vitals are stable. Eyes: Eyes are MADELINE EOMI without conjuctival erythema or icterus. ENT: External examination was negative for masses. Neck: Negative for masses or palpable thyromegaly Respiratory: Lung sounds were generally clear bilaterally Cardiovascular: Heart was RRR without significant murmur, gallops aoe rubs Gastrointestinal: No palpable hepatic or splenomegaly. The abdomen was soft with normal due to decreased bowel sounds. Bandages over the abdomen at the right flank. Lymphatic system: there was no palpable peripheral lymphadenopathy Musculoskeletal System: The musculoskeletal system seemed concordant with age. Skin: The skin was negative for jaundice. Neurologic exam: The exam was negative for any focal findings. Deep tendon reflexes were equal and symmetrical. Psychiatric exam: Was essentially negative with normal mood and effect. Extremities: Negative for edema Laboratory Last 24 Hours Test 06/28/16 07:11 Creatinine 0.65 mg/dl Est Creatinine Clear Calc Drug Dose 78.0 ml/min Estimated GFR () 104.3 Estimated GFR (Non- 90.0 Assessment & Plan Lab - particularly the iron studies are more consistent with anemia chronic disease. Suggestions would be to transfuse as needed. Nevertheless with a history of a gastric bypass - she should be followed as an outpatient and we will arrange for follow-up. There may be the need intermittently for parenteral iron. A B12 level will be checked. For now we will sign off. Please don't hesitate to reconsult if necessary.
--- NOTE | 2016-06-28 10:09 | DIAGNOSTIC IMAGING REPORT ---
UPPER GI SERIES AND SMALL BOWEL FOLLOW-THROUGH CLINICAL HISTORY: Abdominal abscess. Evaluate for fistula. COMPARISON STUDY: CT of the abdomen and pelvis November 18, 2013. FLUOROSCOPY TIME: 2.1 minutes. FINDINGS: 29 fluoroscopic images were obtained. An upper GI series was performed followed by small bowel follow-through. There was mild esophageal dysmotility. There were postsurgical findings consistent with a gastric bypass. Of note, there was minimal contrast within the excluded stomach. A right abdominal wound/cavity was noted. There was contrast within this wound likely extending from the excluded stomach or proximal duodenum. This suggests a fistula which likely accounts for the abscess. No additional fistulae were identified. There was no evidence for small bowel obstruction. Transit time to the cecum was normal at 60 minutes. Incidental note was made of right renal calculi. IMPRESSION: 1. 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 2. Findings consistent with gastric bypass. No evidence for a small bowel obstruction. Electronically signed by: Hadley Hua M.D. 06/28/2016 10:07 AM Dictated Date/Time: 06/28/2016 9:29 AM
--- NOTE | 2016-06-28 10:57 | Surgery Progress Note ---
Surgery Progress Note Date of Service Jun 28, 2016. Subjective + feeling well pt is stable, pt had upper GI study today- report- IMPRESSION: 1. 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 2. Findings consistent with gastric bypass. No evidence for a small bowel obstruction. Objective Vital Signs: Date Time Temp Pulse Resp B/P Pulse Ox O2 Delivery O2 Flow Rate FiO2 06/28/16 07:39 Room Air 06/28/16 07:14 36.7 64 16 101/55 95 Room Air 06/27/16 23:05 36.8 63 16 131/76 96 Room Air 06/27/16 21:30 60 95/59 06/27/16 19:50 Room Air 06/27/16 15:45 36.3 65 16 133/78 95 Room Air General Appearance: WD/WN Head: normocephalic Neck: supple, no adenopathy, no JVD Respiratory/Chest: chest non-tender, lungs clear Cardiovascular: regular rate, rhythm, no edema, no gallop, no JVD Abdomen: normal bowel sounds, non tender, non distended, soft Incision(s): clean, drainage Extremities: normal range of motion, non-tender, normal inspection Laboratory Results: Results Past 24 Hours Test 06/28/16 07:11 06/28/16 10:08 Range/Units Creatinine 0.65 0.60-1.20 mg/dl Est Creatinine Clear Calc Drug Dose 78.0 ml/min Estimated GFR () 104.3 Estimated GFR (Non- 90.0 Assessment & Plan IMP: S/P I/D abdominal wall abscess pt is doing better, D/C NG tube infection disease Doctor consult co-manage resume home meds wound culture is pending I update information about OR finding and the procedure pt had to pt and her son and daughter, they understood, I answered all questions, will F/U continue treatment I update information to pt and her family may do Upper GI study to R/O bowel fistula tomorrow, they agree with the plan, Will F/U. I recommend to do GI study to R/O small bowel fistula, D/W benefits, risks and alternatives of the study, pt and her understood, they agree with the plan, H/H is low 8.2, asymptomatic , pt had anemia history in the past, hematology consult, PT consult will F/U 06/28/2016 base on Upper GI study- gastric fistula, gastric bypass history and multiple surgery history on abdomen, pt and her requests to transfer to higher level care, D/W benefits, risks and alternatives of the transfer, pt and her understood, they agree with the transfer, I called [facility], Dr. Salvador who accepted the pt. IMP: S/P I/D abdominal wall abscess pt is doing better, D/C NG tube infection disease Doctor consult co-manage resume home meds wound culture is pending I update information about OR finding and the procedure pt had to pt and her son and daughter, they understood, I answered all questions, will F/U continue treatment I update information to pt and her family may do Upper GI study to R/O bowel fistula tomorrow, they agree with the plan, Will F/U. I recommend to do GI study to R/O small bowel fistula, D/W benefits, risks and alternatives of the study, pt and her understood, they agree with the plan, H/H is low 8.2, asymptomatic , pt had anemia history in the past, hematology consult, PT consult will F/U
[2016-06-28] MEDS ORDERED: VANCOMYCIN TROUGH SCH (11:30)
[2016-06-28] MEDS: VANCOMYCIN INJ 1,100 MG in SODIUM CHLORIDE 0.9% 250ML 250 ML IV SCH (11:36)
--- NOTE | 2016-06-28 11:55 | Discharge Instructions ---
Discharge Instructions Date of Service Jun 28, 2016. Admission Reason for Admission: Abdominal Wall Abscess Discharge Discharge Diagnosis / Problem: S/P I/D right abdominal wall abscess, gastric fistula Discharge Goals Goal(s): Decrease discomfort, Improve function Activity Recommendations Activity Limitations: per Instructions/Follow-up section Exercise/Sports Limitations: gradually increase as tolerated Shower/Bathe: may shower/bathe in 3 days Driving or Machine Use: resume 3 days after discharge . Instructions / Follow-Up Instructions / Follow-Up D/W pt and her and her son about transfer ways, by EMS pt needs to pay, or transfer by her family members, they wants to transfer by pt's family members after discharge, they understood about risks of transfer, I answered all questions. Current Hospital Diet Patient's current hospital diet: Regular Diet Discharge Diet Recommended Diet: Regular Diet Procedures Procedures Performed: Incision and Drainage Abdominal Wall Abscess Pending Studies Studies pending at discharge: no Medical Emergencies . Who to Call and When: Medical Emergencies: If at any time you feel your situation is an emergency, please call 911 immediately. . Non-Emergent Contact Non-Emergency issues call your: Surgeon Call Non-Emergent contact if: you have a fever, temperature is above 100.5 . "Provider Documentation" section prepared by Cecy Fragoso. VTE Core Measure Inpt VTE Proph given/why not?: SCD's
--- NOTE | 2016-06-28 11:55 | Infectious Disease Progress Nt ---
Progress Note Date of Service Jun 28, 2016. Subjective Creatinine is stable at 0.65 today. OR culture growing Klebsiella Oxytoca, E. Coli, and probable anaerobic bacteria, and blood cultures continue to show NGTD. Upper GI series showed findings consistent with a gastric fistula to the right abdominal wall. Patient is potentially going to be transferred to [place] for further care. She continues on IV Vancomycin and Ertapenem, and she is tolerating these well. All Other Systems: Reviewed and Negative Medications Current Inpatient Medications Medications (Trade) Dose Ordered Sig/Devang Route Start Time Stop Time Status Last Admin Dose Admin Potassium Chloride/Dextrose/ Sod Cl (D5W And 1/2nss + 20meq KCl) 1,000 ml @ 80 mls/hr [id number] IV 06/24/16 20:30 07/24/16 20:29 06/27/16 23:32 80 MLS/HR Ondansetron HCl (Zofran Inj) 4 mg Q4H PRN IV 06/24/16 19:00 07/24/16 18:59 06/28/16 05:32 4 MG Hydromorphone HCl (Dilaudid Inj) 0.6 mg Q3H PRN IV 06/24/16 19:00 07/08/16 18:59 Hydromorphone HCl (Dilaudid Inj) 1 mg Q3H PRN IV 06/24/16 19:00 07/08/16 18:59 06/28/16 05:33 1 MG Lactobacillus Acidophilus (Floranex Tab) 4 tab TIDM PO 06/25/16 08:30 07/25/16 08:29 06/27/16 17:24 4 TAB Vancomycin HCl (Consult) 1 ea UD PRN N/A 06/25/16 06:45 07/05/16 06:44 Atenolol (Tenormin Tab) 25 mg BID PO 06/25/16 21:00 07/25/16 20:59 06/27/16 08:36 25 MG Bupropion HCl (Wellbutrin-Sr Tab) 100 mg BID PO 06/25/16 21:00 07/25/16 20:59 06/27/16 21:33 100 MG Cetirizine HCl (zyrTEC TAB) 10 mg QAM PO 06/26/16 09:00 07/26/16 08:59 06/27/16 08:36 10 MG Levothyroxine Sodium (Synthroid Tab) 125 mcg DAILYBB PO 06/25/16 15:15 07/25/16 15:14 06/27/16 05:37 125 MCG Tamsulosin HCl (Flomax Cap) 0.4 mg DAILY PO 06/26/16 09:00 07/26/16 08:59 06/27/16 08:36 0.4 MG Nizatidine 300 mg 300 mg BID PO 06/26/16 09:00 07/26/16 08:59 06/27/16 21:36 300 MG Vancomycin HCl/ Sodium Chloride (Vancomycin Inj/ Nss 250ml) 272 ml @ 125 mls/hr Q12H IV 06/27/16 00:00 07/04/16 23:59 06/28/16 11:36 125 MLS/HR Docusate Sodium (coLACE CAP) 100 mg BID PO 06/27/16 09:00 07/27/16 08:59 06/27/16 21:33 100 MG Non-Formulary Medication 1 ea 1 ea We@0900 SC 07/03/16 09:00 07/27/16 10:29 Ertapenem/Sodium Chloride (Invanz Iv/Nss Ad-Van 50ml) 50 ml @ 120 mls/hr Q24H IV 06/27/16 17:00 07/07/16 16:59 06/27/16 17:24 120 MLS/HR Objective Vital Signs Date Time Temp Pulse Resp B/P Pulse Ox O2 Delivery O2 Flow Rate FiO2 06/28/16 07:39 Room Air 06/28/16 07:14 36.7 64 16 101/55 95 Room Air 06/27/16 23:05 36.8 63 16 131/76 96 Room Air 06/27/16 21:30 60 95/59 06/27/16 19:50 Room Air 06/27/16 15:45 36.3 65 16 133/78 95 Room Air Physical Exam General Appearance: no apparent distress, + obese Eyes: normal inspection, sclerae normal ENT: hearing grossly normal Neck: supple, trachea midline Respiratory/Chest: no respiratory distress, no accessory muscle use Cardiovascular: + pertinent finding (regular rate) Abdomen: + pertinent finding (large bandage on right abdominal wall) Extremities: normal range of motion Neurologic/Psychiatric: alert, normal mood/affect Skin: normal color, warm/dry, no rash Laboratory Results UPPER GI SERIES AND SMALL BOWEL FOLLOW-THROUGH CLINICAL HISTORY: Abdominal abscess. Evaluate for fistula. COMPARISON STUDY: CT of the abdomen and pelvis November 18, 2013. FLUOROSCOPY TIME: 2.1 minutes. FINDINGS: 29 fluoroscopic images were obtained. An upper GI series was performed followed by small bowel follow-through. There was mild esophageal dysmotility. There were postsurgical findings consistent with a gastric bypass. Of note, there was minimal contrast within the excluded stomach. A right abdominal wound/cavity was noted. There was contrast within this wound likely extending from the excluded stomach or proximal duodenum. This suggests a fistula which likely accounts for the abscess. No additional fistulae were identified. There was no evidence for small bowel obstruction. Transit time to the cecum was normal at 60 minutes. Incidental note was made of right renal calculi. IMPRESSION: 1. 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 2. Findings consistent with gastric bypass. No evidence for a small bowel obstruction. RUN DATE: 06/28/16 [facility] PAGE 1 RUN TIME: 907 Specimen Inquiry PATIENT: KRYSTA VALENTINO LOC: [facility] U # : [id number] AGE/SX: 71/F ROOM: [facility] REG : 06/24/[address]: Cecy Fragoso MD : [id number] BED: 1 DIS : STATUS: ADM IN TLOC: SPEC #: [id number] OLU: 06/24/16 STATUS: RES REQ #: [id number] RECD: 06/24/[address] [facility] DR: Arie Hernandez M.D. SOURCE: ABSCESS ENTR: 06/24/[address]: Danyell Austin M.D. SPDESC: ABD ORDERED: AER/LIS CULTSMR Procedure Result Verified Site GRAM STAIN Final 06/25/16 RESULT MANY WBCs SEEN MODERATE GRAM NEGATIVE BACILLI MODERATE GRAM POSITIVE COCCI OR AER/LIS CULT Preliminary 06/28/16 Organism 1 KLEBSIELLA OXYTOCA QUANITY FEW SENS SENSITIVITY TO FOLLOW +MIXWOUND PLUS LOW COUNTS OF PROBABLE INTESTINAL LOCO Organism 2 ESCHERICHIA COLI QUANITY FEW SENS SENSITIVITY TO FOLLOW Organism 3 PROBABLE LIS GRAM NEG BACILLI QUANITY MODERATE SENS NO SENSITIVITY TO FOLLOW 1. KLEBSIELLA OXYTOCA Target Route Dose RX AB Cost M.I.C. IQ ------ ----- ------ -- ------ -------- - ------ TRIMET/SULFA S <=2/38 AMPICILLIN/SUL I 16/8 CEFAZOLIN R >16 CEFOTAXIME S <=2 CEFTRIAXONE S <=1 CEFEPIME S <=4 CEFUROXIME S <=4 IMIPENEM S <=1 GENTAMICIN S <=4 TOBRAMYCIN S <=4 AMIKACIN S <=16 CIPROFLOXACIN S <=1 LEVOFLOXACIN S <=2 ERTAPENEM S <=1 PIP/TAZO S <=16 S = SENSITIVE I = INTERMEDIATE R = RESISTANT Item Value Date Time Gram Stain - Final Resulted 06/24/16 1830 Abscess Abdomen Blood Culture - Preliminary Resulted 06/24/16 1716 Blood NO GROWTH TO DATE. Blood Culture - Preliminary Resulted 06/24/16 1710 Blood NO GROWTH TO DATE. Last 24 Hours Test 06/28/16 07:11 06/28/16 10:08 06/28/16 11:30 Creatinine 0.65 mg/dl Est Creatinine Clear Calc Drug Dose 78.0 ml/min Estimated GFR () 104.3 Estimated GFR (Non- 90.0 Assessment and Plan (1) Abdominal wall abscess Status: Acute Patient with large abdominal abscess with fistula now s/p I & D with large open wound. Cultures growing Klebsiella oxytoca, E. Coli pending sensitivities, and anaerobic bacteria pending further identification. She is currently on IV Vancomycin and Ertapenem 1 g daily. Feel that the patient likely should continue on both of these medications pending her final culture results. She very likely will need at least another 2 weeks of IV abx therapy pending further surgery/wound healing. We will follow. Case reviewed and agree with above assessment.
[2016-06-28] MEDS: D5W AND 1/2NSS + 20MEQ KCL 1,000 ML IV SCH (12:34)
[2016-06-28 12:39] VITALS: BP 101/55; PULSE 64; TEMP 36.7; O2SAT 95
--- NOTE | 2016-06-28 13:03 | DISCHARGE SUMMARY ---
DATE OF DISCHARGE: 06/28/2016. ADMITTING DIAGNOSIS: Right abdominal wall abscess, possible bowel fistula. DISCHARGE DIAGNOSIS: Post stat I\T\D right abdominal wall abscess gastric fistula. PROCEDURE: Post stat I\T\D right abdominal wall abscess. SURGEON: Dr. Cecy Fragoso. DETAILS OF DISCHARGE SUMMARY: This is 71-year-old female who presented to the ED with right upper quadrant pain. The patient had a CT scan showing right abdominal wall abscess, possible with bowel fistula. We took the patient to the OR, we did I\T\D abscess and after the procedure the patient is stable. We used IV antibiotic to control infection. We did upper GI study today showing the epigastric fistula to the wound and based on the patient has significant past multiple surgical history on the abdomen, gastric bypass, the patient and patient's family member requested transfer to high level care. PHYSICAL EXAMINATION: VITAL SIGNS: Temperature is 36.7, the heart rate is 64, the respiratory rate is 16, blood pressure 101/55. O2 saturation 95% on room air. GENERAL: The patient is alert, awake, oriented x3. No distress. NECK: No JVD. HEAD, EYES, EARS, NOSE, AND THROAT: With normal limitation. NEUROLOGIC EXAMINATION: Intact. CHEST: Bilateral lungs sound clear on the chest. CARDIOVASCULAR SYSTEM: Normal S1 and S2, no murmur. ABDOMEN: Soft, no tenderness. The wound on the right side of abdominal wall some drainage and packing the wound and no significant redness. EXTREMITIES: No edema. Again based on the upper GI study shows gastric bypass and multiple surgical history in the past, inflammation and edema on the incision sites and the patient and the patient's family member wanted to transfer to a higher level. I did talk to them about the benefit and risk, alternate of transfer and they understand. I also gave them the transport option and may transfer by EMS they may need to pay for the transfer by themselves and discussion about the benefit and risk, alternate transfer, they understand and chose transfer by themselves and after discharge patient agreed. I already talked to [facility], Dr. Salvador who accepted the patient.
[2016-07-03] MEDS ORDERED: NON-FORMULARY PATIENT'S OWN MED SC SCH (09:00)
== END 2016-06-28 14:54 | disposition home or self-care (01) | DRG 357 ==
LOC: ENRESERVDT → ENRESERVTM → C.EDB 15:38 → C.MSW 19:04
PROVIDERS: ADMIT Surgery; ATTEND Surgery
PROC: 0W9F0ZZ Drainage of Abdominal Wall, Open Approach (ICD-10-PCS; principal; 2016-06-24 13:45)
DX: K63.2 Fistula of intestine (principal); L02.211 Cutaneous abscess of abdominal wall; I47.1 Supraventricular tachycardia; L71.9 Rosacea, unspecified; F32.9 Major depressive disorder, single episode, unspecified; I10 Essential (primary) hypertension; K21.9 Gastro-esophageal reflux disease without esophagitis; E66.9 Obesity, unspecified; M19.90 Unspecified osteoarthritis, unspecified site; D64.9 Anemia, unspecified; Z68.36 Body mass index [BMI] 36.0-36.9, adult; Z98.84 Bariatric surgery status; Z96.659 Presence of unspecified artificial knee joint; Z90.49 Acquired absence of other specified parts of digestive tract; Z87.891 Personal history of nicotine dependence; Z79.899 Other long term (current) drug therapy; Z91.048 Other nonmedicinal substance allergy status; Z91.013 Allergy to seafood; Z88.2 Allergy status to sulfonamides; Z91.012 Allergy to eggs; Z91.018 Allergy to other foods; Z88.0 Allergy status to penicillin; Z91.040 Latex allergy status; Z87.442 Personal history of urinary calculi; M51.36 Other intervertebral disc degeneration, lumbar region; E03.9 Hypothyroidism, unspecified; B96.20 Unspecified Escherichia coli [E. coli] as the cause of diseases classified elsewhere

== ENCOUNTER → 2016-07-13 | Outpatient (CLI) | payer MEDICARE ==
[~2016-07-13] MED LIST changes: -ASPEC81 PO; -BUPR-266 PO; +BUPR100T8 PO; +FLM4 PO; -METR1GEL3 TOP; -NIZA300C PO; +NIZA300C3 PO; -OXYC-292 PO; -[UNRECOGNIZED DRUG - REMARK] PO
== END | disposition home or self-care (01) ==
LOC: C.LABSPEC 15:35
PROVIDERS: ATTEND Physician Assistant
DX: K31.6 Fistula of stomach and duodenum (principal)